=== PATIENT | female | born 1955 | race Caucasian/White ===

== ENCOUNTER → 2017-12-12 00:19 | Outpatient (CLI) | payer MEDICAID, SELFPAY ==
--- NOTE | 2017-12-12 12:34 | DI.REPORT_ITS ---
SYMPTOMS/DIAGNOSIS: F/U LT OVARIAN CYST ON CT, N83.202 PELVIC ULTRASOUND: Comparison is made with CT of the left femur dated [id number] which showed a solid appearing mass to the left side of the uterus measuring 5.5 x 5 cm. The images from a pelvic ultrasound from 2005 are no longer available for comparison. The report questioned residual ovarian tissue vs a left pelvic mass. The uterus is diminutive in size, measuring 5.6 x 2.1 x 2.6 cm. Multiple Nabothian cysts are noted in the cervix. The endometrial stripe measures 1 mm in thickness. There is a left sided mass measuring 5.7 x 4.8 x 4.7 cm which is difficult to separate from the uterus. The findings could represent a pedunculated fibroid. The attenuation on CT is similar to the adjacent uterus. The right ovary was unable to be seen on today's exam. The kidneys are unremarkable. There is no free fluid. IMPRESSION: 5.7 cm avascular solid appearing lesion to the left side of the uterus could represent a pedunculated fibroid. A pelvic MRI could be considered for further evaluation.
== END ==
PROVIDERS: PCP Physician Assistant Medical; Visit Provider Obstetrics & Gynecology
DX: N83.292 Other ovarian cyst, left side (principal); N88.8 Other specified noninflammatory disorders of cervix uteri; D25.9 Leiomyoma of uterus, unspecified
CPT/HCPCS: 76830; 76856

== ENCOUNTER → 2018-01-08 14:08 | Outpatient (CLI) | payer MEDICAID, SELFPAY ==
[2018-01-08 15:49] LABS: HCT 37.7 % (36.0-46.0); Mean Corp. HGB Concentration 34.5 g/dL (32.0-36.0); Mean Corpuscular Hemoglobin 28.6 pg (27.0-33.0); Mean Corpuscular Volume 82.9 fL (80-95); Mean Platelet Volume 9.7 fL (8.0-11.0); Platelet Count 224 x1000/uL (130-400); RBC 4.55 m/cumm (4.00-5.20); RBC Distribution Width 12.9 % (11.7-14.6); White Blood Cell Count 5.93 k/cumm (4.4-10.8)
[2018-01-08 16:02] LABS: Hemoglobin A1C 6.6 % (4.5-6.2)
[2018-01-08 16:08] LABS: Anion Gap 10.5 mmol/L (3-11); BUN 21 mg/dL (7-18); CO2 24.5 mmol/L (21.0-32.0); CREATININE 1.09 mg/dL (0.55-1.02); Calcium 9.2 mg/dL (8.5-10.1); Chloride 104 mmol/L (98-107); Estimated GFR 50.54 (mL/min/1.73m2); Glucose 104 mg/dL (70-100); Sodium 139 mmol/L (136-145)
== END ==
PROVIDERS: PCP Physician Assistant Medical; Visit Provider Student in an Organized Health Care Education/Training Program
DX: M16.11 Unilateral primary osteoarthritis, right hip (principal)
CPT/HCPCS: 36415; 80048; 85027; 86850; 86900; 86901; 83036

== ENCOUNTER 2018-01-16 13:48 | Inpatient (IN) | payer MEDICAID, SELFPAY ==
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
[2018-01-16] VITALS (18 sets, daily range): BP systolic 78–130; BP diastolic 39–78; PULSE 72–102; RESP 16–28; TEMP 36.5–37.1; O2SAT 87–98
[2018-01-16] MEDS: Lactated Ringers 1,000 ML 80 ML IV ×3 (07:56→14:37)
[2018-01-16] MEDS: Celecoxib 200 MG CAP 400 MG PO (08:01)
[2018-01-16] MEDS: Acetaminophen 500 MG TAB 1000 MG PO ×3 (08:01→20:03)
[2018-01-16] MEDS: oxyCODONE-CR 10 MG TABCR PO (08:02)
--- NOTE | 2018-01-16 09:43 | DI.RAD_ITS ---
SYMPTOMS/DIAGNOSIS: END-STAGE OSTEOARTHRITIS OF RIGHT HIP, RIGHT HIP DJD C-ARM FLUOROSCOPY OF THE RIGHT HIP: Fluoroscopy Time: 35.9 sec Fluoroscopy was provided in the OR for Dr. Sanders. Hard copy images show placement of a right total hip prosthesis. The alignment appears satisfactory.
[2018-01-16] MEDS: Bupivacaine 0.25% Pres-Free 30 ML VIAL 60 ML (12:34)
[2018-01-16] MEDS: Ketorolac 30 MG/ML VIAL (12:34)
--- NOTE | 2018-01-16 13:26 | DI.RAD_ITS ---
SYMPTOMS/DIAGNOSIS: POST OP CHECK RT HIP PORTABLE PELVIS: Comparison is made with intraoperative images performed earlier the same day. A single AP view was performed. The exam is quite limited due to underpenetration. A right hip prosthesis is seen which appears well positioned.
[2018-01-16] MEDS: Normal Saline Flush 10 ML SYR IV (14:36)
--- NOTE | 2018-01-16 14:44 | NUR.NOTE ---
Nursing Note: Pt arrived from PACU via stretcher. Transferred to bed via hover mat. A&Ox3, VSS (see worklist). CMT WNL, Pt reports slight tingling sensation. Pedal pulses palpated. denies nausea, reports slight pain in right hip, tylenol given. Pt's mouth and lips are very dry. Tolerating g.jarad and H2O. Right hips drsg c/d/i. Pt oriented to room and call churchill. visitor @ bedside.
--- NOTE | 2018-01-16 15:15 | IN_ITS ---
THIS REPORT WAS CANCELLED BY MISTAKE AND ON 05/30/18 CUT AND PASTED BACK INTO THE CORRECT PATIENT'S RECORD. THIS PROVIDER IS NO LONGER HERE AND THEREFORE THIS IS NOT SIGNED. DEB 05/30/18 Date: 01/16/18 Referring Doctor: Jose Sanders PT Orders: PT CONSULT: s/p R anterior MADELAINE Precautions: WBAT R LE Patient Profile/Admitting Diagnosis: Pt is a 62yr old female s/p right anterior total hip arthroplasty 01/16/[address] Sanders PMHX: obesity, diabetes mellitus, hypertension, depression, gastroesopahgeal reflux disease, oophorectomy, hyperperlipidemia Social History/Home Situation: Lives alone in a house, 4 steps with railing to enter, flight of stairs to basement laundry but does not have to do them initially. Baseline mobility independent with 4WW, independent ADLS. Equipment Owned/DME: cane, FWW, 4WW, raised toilet seat, shower bench and grab bars in the bathroom Subjective: Pt lying in bed, agreeable to PT consult. States she feels a pinching in her right hip and feels tired from today. Objective: General Observation: IV R UE, kennedy catheter, ice pack to right hip Mental Status: A&Ox3 Pain: no c/o pain Bed Mobility/Transfers: Supine-sit: HOB 30 degrees, independent Sit-stand: SBA with FWW Stand-sit: supervision Sit-supine: HOB flat, independent Gait: SBA with FWW 10ftx2 WBAT R LE. Slow step to gait pattern, slightly lightheaded with standing, reports being tired. Therex: Pt has issued home exercise program. Initiated ankle pumps, quad sets, glute sets x 20 reps Balance: Static Sitting: normal Dynamic Sitting: normal Static Standing:fair Dynamic Standing: fair Special Tests: Mobility Limitations Standardized Measure [facility] AM-PAC 6 clicks Basic Mobility Inpatient Short Form: Raw Score: 18 Standardized Score: 43.63 CMS Score: 46.58% CMS Modifier: CK Informed Consent/Education: Patient instructed in purpose of PT consult and plan of care. Assessment: Pt is a 62yr old female s/p right anterior total hip arthroplasty 01/16/[address] Sanders in setting of obesity, diabetes mellitus, hypertension. Patient presents with the following impairment level findings: pain right hip, edema right hip, decreased strength R hip, decreased strength and mobility with standing transfers and gait mobility requiring FWW for stability post operatively, decreased static and dynamic standing balance. Pt was able to mobilize out of bed this afternoon, will progress gait distance and stair training in am. Anticipate return to home setting when goals met. Impairments are contributing to the following functional limitations: AMPAC score CMS Score: 46.58% Patient is assessed as a *Moderate 35318 complexity based on the following: History: s/p right anterior total hip arthroplasty 01/16/[address] Sanders in setting of obesity, diabetes mellitus, hypertension. Examination: pain right hip, edema right hip, decreased strength R hip, decreased strength and mobility with standing transfers and gait mobility requiring FWW for stability post operatively, decreased static and dynamic standing balance. Presentation: evolving Decision Making: AMPAC score CMS Score: 46.58% Goals: Goals X1 week 1. Supine-Sit independent 2. Sit-Supine independent 3. Sit-Stand supervision with FWW 4. Stand-Sit supervision with FWW 5. Bed-Chair SBA with FWW 6. Chair-Bed SBA with FWW 7. Gait SBA with FWW 75ft WBAT R LE 8. Stairs up/down 4 steps with railing, SBA WBAT RL E 9. Independent with ome exercise program for R MADELAINE Plan of Care/Treatment Plan: 1-2x/day, 7 days/week x 1 week. Plan of care has been reviewed with the FRANKFURTER INSPECTOR providing the service under Physical Therapy direction. Initiate Physical Therapy intervention for strengthening, bed mobility, transfers, gait, stairs, balance training, use of assistive device. DISCHARGE RECOMMENDATIONS: Home, pt has all DME TREATMENT CODE/TIME: 25mi IE 1510 G Codes in the area mobility of walking and moving around: current status [id number] -CK; projected status GP [id number]. Discharge status (if discharging) GP G8980 CK based on AMPAC score CMS Score: 46.58% Chapin Mike PT Intake Vital Signs 01/08/18 14:31 01/16/18 07:35 01/16/18 13:07 01/16/18 13:12 01/16/18 13:17 01/16/18 13:30 01/16/18 13:45 01/16/18 14:01 01/16/18 14:20 01/16/18 14:48 Height 5 ft 5 in 5 ft 5 in Weight 103 kg BP 126/77 83/39 L 78/39 L 93/41 L 90/39 L 100/43 L 102/48 L 107/56 L 130/78 Respiration 18 19 16 16 17 16 19 17 18 Pulse 97 H 77 76 74 74 72 79 86 74 Temp 37.1 C 36.5 C 36.5 C 36.5 C 36.5 C 36.6 C 36.6 C 36.6 C 36.5 C Temp Source Tympanic Pulse Oximetry (%) 95 95 93 L 94 L 94 L 92 L 97 97 95 Oxygen Flow Rate 0 2 2 2 2 2 2 2 0 CC: Dictated by: CHAPIN MIKE PT Dictated: 01/16/18 Time: 1514 Date: Time: Transcribed Date: 01/16/18 Transcribed Time: 1514 By: [place] This is privileged, confidential information, intended only for the provider named. Any use or distribution by any person other than this provider is strictly prohibited. If you receive this report in error, please notify us immediately at [phone] and return the original report to us at the address above. Thank you.
--- NOTE | 2018-01-16 15:18 | IN_ITS ---
PT Notes Inpatient Physical Therapy Evaluation Date: 01/16/18 Referring Doctor: Jose Sanders PT Orders: PT CONSULT: s/p R anterior MADELAINE Precautions: WBAT R LE Patient Profile/Admitting Diagnosis: Pt is a 62yr old female s/p right anterior total hip arthroplasty 01/16/[address] Sanders PMHX: obesity, diabetes mellitus, hypertension, depression, gastroesopahgeal reflux disease, oophorectomy, hyperperlipidemia Social History/Home Situation: Lives alone in a house, 4 steps with railing to enter, flight of stairs to basement laundry but does not have to do them initially. Baseline mobility independent with 4WW, independent ADLS. Equipment Owned/DME: cane, FWW, 4WW, raised toilet seat, shower bench and grab bars in the bathroom Subjective: Pt lying in bed, agreeable to PT consult. States she feels a pinching in her right hip and feels tired from today. Objective: General Observation: IV R UE, kennedy catheter, ice pack to right hip Mental Status: A&Ox3 Pain: no c/o pain Bed Mobility/Transfers: Supine-sit: HOB 30 degrees, independent Sit-stand: SBA with FWW Stand-sit: supervision Sit-supine: HOB flat, independent Gait: SBA with FWW 10ftx2 WBAT R LE. Slow step to gait pattern, slightly lightheaded with standing, reports being tired. Therex: Pt has issued home exercise program. Initiated ankle pumps, quad sets, glute sets x 20 reps Balance: Static Sitting: normal Dynamic Sitting: normal Static Standing:fair Dynamic Standing: fair Special Tests: Mobility Limitations Standardized Measure [facility] AM-PAC 6 clicks Basic Mobility Inpatient Short Form: Raw Score: 18 Standardized Score: 43.63 CMS Score: 46.58% CMS Modifier: CK Informed Consent/Education: Patient instructed in purpose of PT consult and plan of care. Assessment: Pt is a 62yr old female s/p right anterior total hip arthroplasty 01/16/[address] Sanders in setting of obesity, diabetes mellitus, hypertension. Patient presents with the following impairment level findings: pain right hip, edema right hip, decreased strength R hip, decreased strength and mobility with standing transfers and gait mobility requiring FWW for stability post operatively, decreased static and dynamic standing balance. Pt was able to mobilize out of bed this afternoon, will progress gait distance and stair training in am. Anticipate return to home setting when goals met. Impairments are contributing to the following functional limitations: AMPAC score CMS Score: 46.58% Patient is assessed as a *Moderate 40649 complexity based on the following: History: s/p right anterior total hip arthroplasty 01/16/[address] Sanders in setting of obesity, diabetes mellitus, hypertension. Examination: pain right hip, edema right hip, decreased strength R hip, decreased strength and mobility with standing transfers and gait mobility requiring FWW for stability post operatively, decreased static and dynamic standing balance. Presentation: evolving Decision Making: AMPAC score CMS Score: 46.58% Goals: Goals X1 week 1. Supine-Sit independent 2. Sit-Supine independent 3. Sit-Stand supervision with FWW 4. Stand-Sit supervision with FWW 5. Bed-Chair SBA with FWW 6. Chair-Bed SBA with FWW 7. Gait SBA with FWW 75ft WBAT R LE 8. Stairs up/down 4 steps with railing, SBA WBAT RL E 9. Independent with ome exercise program for R MADELAINE Plan of Care/Treatment Plan: 1-2x/day, 7 days/week x 1 week. Plan of care has been reviewed with the RESIDENTIAL CONCIERGE providing the service under Physical Therapy direction. Initiate Physical Therapy intervention for strengthening, bed mobility, transfers, gait, stairs, balance training, use of assistive device. DISCHARGE RECOMMENDATIONS: Home, pt has all DME TREATMENT CODE/TIME: 25mi IE 1510 G Codes in the area mobility of walking and moving around: current status [id number] -CK; projected status GP [id number]. Discharge status (if discharging) GP G8980 CK based on AMPAC score CMS Score: 46.58% Karlene Myers PT Intake Vital Signs 3 l l l l 01/08/18 14:31 l l 01/16/18 07:35 l l 01/16/18 13:07 l l 01/16/18 13:12 l l 01/16/18 13:17 l l 01/16/18 13:30 l l 01/16/18 13:45 l l 01/16/18 14:01 l l 01/16/18 14:20 l l 01/16/18 14:48 l l Height 5 ft 5 in 5 ft 5 in l l Weight 103 kg l l BP 126/77 83/39 L 78/39 L 93/41 L 90/39 L 100/43 L 102/48 L 107/56 L 130/78 l l Respiration 18 19 16 16 17 16 19 17 18 l l Pulse 97 H 77 76 74 74 72 79 86 74 l l Temp 37.1 C 36.5 C 36.5 C 36.5 C 36.5 C 36.6 C 36.6 C 36.6 C 36.5 C l l Temp Source Tympanic l l Pulse Oximetry (%) 95 95 93 L 94 L 94 L 92 L 97 97 95 l l Oxygen Flow Rate 0 2 2 2 2 2 2 2 0
[2018-01-16] MEDS: Insulin Aspart 300 UNITS/3 ML PEN SC (17:00)
[2018-01-16] MEDS: metFORMIN 500 MG TAB PO (17:01)
[2018-01-16] MEDS: oxyCODONE 5 MG TAB PO ×2 (17:02→21:22)
--- NOTE | 2018-01-16 19:32 | W.PM.OP ---
Date of service: 01/16/18 Time of Service: 13:32 Operative Note Date of procedure: 01/16/18 Pre-op diagnosis: Right Hip Osteoarthritis Post-op diagnosis: same Procedure: Right Anterior Total Hip Arthroplasty Surgeon: Jose Sanders Nurses Educator: Uday King Anesthesia: spinal Estimated blood loss (mL): 400 Pathology: none sent Complications: None Patient was transported to: PACU Patient's condition: stable Implants: 1. Depuy Ethel Acetabular Component, [48]mm 2. Depuy Acetabular Liner, [48x32]mm[, +4 lateralized] 3. Depuy Actis [Standard Collared] Femoral Stem, Size 3 4. Depuy [Altrx Ceramic Femoral Head], Size [32+5]mm Indications: I have seen Tracy in clinic for symptoms of hip arthritis, confirmed with radiographic findings. Dee has exhausted nonoperative methods and was having significant limitations in daily function and desired better function and less pain. I discussed the technical details of a hip replacement. I explained the risks of the procedure to include, but not limited to, bleeding, infection, pain, stiffness, fracture, damage to nerves and vessels, damage to muscles and tendons, loosening, instability, leg length inequality, need for repeat procedure, blood clot and cardiopulmonary demise. Despite these risks, she elected to proceed. Findings: There was significant signs of arthritis throughout the hip. There were femoral neck osteophytes and significant chondromalacia over the superior femoral head. Procedure Description: Tracy was greeted in the preoperative holding area where the correct side was identified and marked. The consent was reviewed with the patient and signed. The history and physical was updated. All questions were answered. She was taken back to the operating room. A spinal anesthestic was then administered. The patient was placed into the supine position on the operating room table. The patient was then positioned onto the ARCH table. Both feet were wrapped with [place] cotton wrap along with Coban. The feet were placed in specialized boots for the ARCH table, well seated within the boot and secured. SCDs were applied. The patient was then slid down onto a peroneal post and the nonoperative leg was secured in a leg allison attached to the table. The operative side was placed into the ARCH table attachment and bed height and positioning was secured. A preoperative AP pelvis was obtained to serve as a reference for determining leg lengths. Prophylactic antibiotics in the form of Cefazolin were administered. 1g of Tranxemic Acid was given intravenously within 30 minutes of incision. The right leg was then prepped with Chloraprep and draped in a standard fashion with a large shower-curtain type drape with Iodine impregnated skin protection. A timeout to confirm correct identity, side and site, procedure, allergies, anesthesia, and medical concerns was performed. An obliquely oriented incision was made starting lateral to the ASIS and running distal over the Tensor Fascia Mercedes (TFL) muscle belly toward the fibular head, approximately 10cm. The skin and soft tissue was dissected sharply, through Tierra?s fascia, and to the fascia of the TFL. With the fascia and superior border of the IT band identified, the fascia was incised with a new knife just above any perforators from the IT band. The TFL muscle belly was bluntly dissected away from the fascia and moved laterally. The fat between TFL and rectus was identified to ensure the dissection was not within the TFL. Blunt dissection created space between abductors and the capsule and retractor was placed over the lateral femoral neck. The fibers of the rectus femoris tendon were identified and these were freed from the anterior capsule. A second cobra retractor was placed around the medial femoral neck. The TFL was further retracted laterally to show the deep fascia. Careful dissection through this layer identified three main crossing vessels of the lateral femoral circumflex. These were cauterized in multiple locations and then cut without any noticeable bleeding. The TFL was further released bluntly from the deep fascia to expose anterior hip capsule and fat The Chaz orthopaedic retractor was then placed beneath the TFL and against sartorius and medial soft tissues to protect and retract the soft tissues. A T-capsulotomy was then performed starting at the superior lateral acetabulum and moving distally to the intertrochanteric ridge. These capsular flaps were tagged with a No. 1 Ethibond and elevated from within. The capsular flaps were released to the shoulder of the lateral neck and to the lesser trochanter to give excellent visualization of the proximal femur. A neck osteotomy was performed using an oscillating saw based on preoperative templates. This cut started in the shoulder and of the lateral neck and exited medially. The saw was at all times directed medially to avoid injury to the greater trochanter. 6cm of traction was applied to the leg and the osteotomy opened. The femoral head was removed with a corkscrew, making sure to protect the TFL on its exit. This was measured on the back table to determing the starting reamer size. Portions of the rectus obscuring visualization were minimally elevated off the superior acetabulum. An anterior retractor was placed over the anterior wall between capsule and labrum. A posterior retractor was placed similarly. This provided excellent visualization. The contents of the cotyloid fossa were removed with electrocautery and the labrum was removed with a knife. There was a notable floor osteophyte. There was significant chondromalacia of the superior acetabulum. Acetabular reaming began with a 43 mm reamer. This first reaming was directed anterior to posterior and medial to get down to the true floor. This was inspected and reamed until the true floor was reached. I then reamed sequentially up to a 47 mm reamer where good fit was obtained. The larger reamers were oriented based on anatomical reference of the anterior and lateral hidalgo to ensure proper abduction and anteversion. Positioning and size was confirmed with the fluoroscopy. A 48 mm Depuy Ethel acetabular component was selected. The acetabulum was reamed around the periphery with the selected acetabular size to prevent a rim fit. The deep tissues were irrigated. The acetabular component was then impacted in a position of about 40-45 degrees of abduction and 15-20 degrees of anteversion, using the patient?s anatomy as the ultimate landmark. Fluoroscopy was used to confirm this. There was excellent toxicology teacher of the acetabular component and the inserting handle was removed. The acetabular liner, Depuy [id number] lateralized polyethylene liner, was inserted and lined up with the tines of the acetabular component. There was no soft tissue interposition. The liner was then impacted into position and confirmed to be well-seated. A portion of the susanna-articular cocktail was then injected around the acetabulum into the capsule and periosteum. This cocktail consisted of 50cc of 0.25% Bupivicaine and 20cc of Exparel, expanded to a total of 120cc. Traction was released from the femur. The leg was rotated to 120 degrees. Any remaining medial capsule was released until the lesser trochanter was easily palpable. A Martin retractor was placed medially. The lateral capsule was further released into the shoulder to allow access to the greater trochanter. A Martin retractor was placed over the greater trochanter which allowed the trochanter to flip in front of the capsule for excellent exposure. The leg was brought down into maximal extension and 20 degrees of adduction while ensuring there was no impingement on the acetabulum. Any remnant capsule within the trochanter was released. Piriformis and obturator externis were identified and protected. There was excellent access to the proximal femur. The lateral neck remnant was removed with a rongeur. A blunt canal probe was used to identify the canal and trajectory for later broaching. A box osteotome initiated the broach course. Broaching then began with a size 0 Actis broach. This was inserted manually around the trochanter and into the canal before mallet blows. The broach was seated to a few millimeters below the cut level based on the neck cut and the preoperative template. Sequential broaching was continued until a tight fit was obtained with good rotational control of the femur. A trial standard neck was inserted along with a +5 trial head. The leg was brought out of extension and adduction and then reduced with traction and internal rotation. The leg was stable anteriorly in a position of 30 degrees of extension and 90 degrees of external rotation. Fluoroscopy was used to ensure there was no fracture and the stem was seated well. Leg lengths were checked with an AP pelvis and pelvic reference points. Once content with the desired offset and leg lengths, the leg was brought back into extension, external rotation and adduction. The periosteum and surrounding tissue was injected with remaining portion of the susanna-articular cocktail. The proximal femur was irrigated as well as the deep tissues. The Depuy Actis standard collared stem, size 3, was then manually inserted into the proximal femur making sure to control rotation. It was then malleted into position with light blows, giving breaks to allow bone expansion and decrease risk of fracture. The selected Depuy Altrx Ceramic Head, size 32+5 mm, was then placed onto the clean and dry trunnion and secured with impaction onto the tapered fit. The leg was brought back out of extension and adduction and reduced with traction and internal rotation. Stability was confirmed with no shuck at 90 degrees of external rotation and 30 degrees of extension. No impingement through range of motion arc. Final x-ray images were obtained with fluoroscopy to confirm adequate positioning and no intraoperative fracture. The deep tissues were thoroughly irrigated with a pulse lavage. The second dose of TXA 1g was administered intravenously. The capsule was then reapproximated with the previously placed Ethibond sutures. The TFL fascia was finally closed with a No. 2 Stratafix, barbed suture. Deep tissues were then reapproximated with 0 Vicryl and a running 2-0 Vicryl. The skin was closed with a running 4-0 Monocryl in a subcuticular fashion. This was reinforced with skin glue. A Mepilex silver dressing was applied. At the end of the case, all counts were correct. Tracy was transferred to the hospital bed without difficulty and suffering no apparent complication. Tracy has a good prognosis. Physical therapy will start today and without restrictions, weight-bearing as tolerated. Aspirin 81mg BID will be used for DVT prophylaxis.
[2018-01-16] MEDS: Celecoxib 100 MG CAP 200 MG PO (20:04)
[2018-01-16] MEDS: Omeprazole 20 MG CAPCR PO (21:23)
[2018-01-16] MEDS: Glucosamine 500 MG CAP 2000 MG PO (21:24)
[2018-01-16] MEDS: Calcium 600mg/Vit D 200U TAB 1 TAB PO (21:25)
[2018-01-16] MEDS: Simvastatin 40 MG TAB PO (21:25)
[2018-01-17 00:30] VITALS: O2SAT 95
[2018-01-17] MEDS: oxyCODONE 5 MG TAB PO ×2 (00:31→08:59)
[2018-01-17] MEDS: Lactated Ringers 1,000 ML 80 ML IV (03:02)
[2018-01-17 04:18] VITALS: BP 127/74; PULSE 81; RESP 20; TEMP 36.5; O2SAT 98
[2018-01-17 07:27] LABS: HCT 32.4 % (36.0-46.0); Mean Corpuscular Hemoglobin 28.6 pg (27.0-33.0); Mean Corpuscular Volume 84.4 fL (80-95); Mean Platelet Volume 9.9 fL (8.0-11.0); Platelet Count 207 x1000/uL (130-400); RBC 3.84 m/cumm (4.00-5.20); RBC Distribution Width 12.7 % (11.7-14.6); White Blood Cell Count 9.21 k/cumm (4.4-10.8)
[2018-01-17 07:40] VITALS: O2SAT 99
[2018-01-17 07:43] LABS: Anion Gap 8.1 mmol/L (3-11); BUN 25 mg/dL (7-18); CO2 25.9 mmol/L (21.0-32.0); CREATININE 1.09 mg/dL (0.55-1.02); Calcium 8.9 mg/dL (8.5-10.1); Chloride 101 mmol/L (98-107); Estimated GFR 50.54 (mL/min/1.73m2); Glucose 122 mg/dL (70-100); Potassium 3.7 mmol/L (3.5-5.1); Sodium 135 mmol/L (136-145)
--- NOTE | 2018-01-17 07:53 | PT.INDS ---
PT Notes Inpatient Physical Therapy Discharge Summary Date: 01/17/18 Dates of Service: 01/16/18-01/17/18 SUBJECTIVE: Pt sitting in recliner chair, states she did not sleep well last night, states her right quad is sore, using ice packs. States her hip does not hurt her, only musculature around the hip. OBJECTIVE: General observation: IV R UE, kennedy catheter, ice pack right hip Pain: c/o pain right quad and groin, using ice packs Bed Mobility/Transfers: Sit-stand: independent with FWW Stand-sit: independent Gait: independent with FWW [id number] WBAT R LE. Step through gait pattern with steady stephanie Stairs: Instructed in up/down 5 steps with left railing, WBAT R LE. step to step sequence, pt performed independently Therex: Pt has issued home exercise program. Performed ankle pumps, long arc quads x 20 reps Balance: Static Sitting: normal Dynamic Sitting: normal Static Standing:fair Dynamic Standing: fair Assessment: Pt is a 62yr old female s/p right anterior total hip arthroplasty 01/16/[address] Sanders in setting of obesity, diabetes mellitus, hypertension. Patient was seen for 2 PT visits. Progressed from SBA standing transfers to independent, from SBA gait with FWW 10ftx2 to independent gait with FWW 150ft, able to ascend/descend 5 steps with railing, indepedendtly. Pt has met therapy goals and is ready for discharge to home setting. Goals: Goals X1 week 1. Supine-Sit independent 2. Sit-Supine independent 3. Sit-Stand supervision with FWW 4. Stand-Sit supervision with FWW 5. Bed-Chair SBA with FWW 6. Chair-Bed SBA with FWW 7. Gait SBA with FWW 75ft WBAT R LE 8. Stairs up/down 4 steps with railing, SBA WBAT RL E 9. Independent with home exercise program for R MADELAINE Pt met goals # 1, 2, 3, 4, 5, 6, 7, 8, 9 DISCHARGE RECOMMENDATIONS: Home, pt has all DME TREATMENT CODE/TIME: 25mi TAx1 TPx1 7:50 G Codes in the area mobility of walking and moving around: projected status GP [id number]. Discharge status (if discharging) GP [id number] CK Karlene Myers PT
[2018-01-17 07:55] VITALS: BP 105/68; PULSE 89; RESP 18; TEMP 36.8; O2SAT 94
--- NOTE | 2018-01-17 07:56 | INDS_ITS ---
PT Notes Inpatient Physical Therapy Discharge Summary Date: 01/17/18 Dates of Service: 01/16/18-01/17/18 SUBJECTIVE: Pt sitting in recliner chair, states she did not sleep well last night, states her right quad is sore, using ice packs. States her hip does not hurt her, only musculature around the hip. OBJECTIVE: General observation: IV R UE, kennedy catheter, ice pack right hip Pain: c/o pain right quad and groin, using ice packs Bed Mobility/Transfers: Sit-stand: independent with FWW Stand-sit: independent Gait: independent with FWW [id number] WBAT R LE. Step through gait pattern with steady stephanie Stairs: Instructed in up/down 5 steps with left railing, WBAT R LE. step to step sequence, pt performed independently Therex: Pt has issued home exercise program. Performed ankle pumps, long arc quads x 20 reps Balance: Static Sitting: normal Dynamic Sitting: normal Static Standing:fair Dynamic Standing: fair Assessment: Pt is a 62yr old female s/p right anterior total hip arthroplasty 01/16/[address] Sanders in setting of obesity, diabetes mellitus, hypertension. Patient was seen for 2 PT visits. Progressed from SBA standing transfers to independent, from SBA gait with FWW 10ftx2 to independent gait with FWW 150ft, able to ascend/descend 5 steps with railing, indepedendtly. Pt has met therapy goals and is ready for discharge to home setting. Goals: Goals X1 week 1. Supine-Sit independent 2. Sit-Supine independent 3. Sit-Stand supervision with FWW 4. Stand-Sit supervision with FWW 5. Bed-Chair SBA with FWW 6. Chair-Bed SBA with FWW 7. Gait SBA with FWW 75ft WBAT R LE 8. Stairs up/down 4 steps with railing, SBA WBAT RL E 9. Independent with home exercise program for R MADELAINE Pt met goals # 1, 2, 3, 4, 5, 6, 7, 8, 9 DISCHARGE RECOMMENDATIONS: Home, pt has all DME TREATMENT CODE/TIME: 25mi TAx1 TPx1 7:50 G Codes in the area mobility of walking and moving around: projected status GP [id number]. Discharge status (if discharging) GP [id number] CK Karlene Myers PT
[2018-01-17] MEDS: Celecoxib 100 MG CAP 200 MG PO (08:21)
[2018-01-17] MEDS: Acetaminophen 500 MG TAB 1000 MG PO (08:21)
[2018-01-17] MEDS: metFORMIN 500 MG TAB PO (08:22)
[2018-01-17] MEDS: Aspirin 81 MG CHEW PO (08:22)
[2018-01-17] MEDS: Ascorbic Acid 500 MG TAB PO (08:22)
[2018-01-17] MEDS: Hydrochlorothiazide 25 MG TAB PO (08:22)
[2018-01-17] MEDS: Multivitamin TAB 1 TAB PO (08:22)
--- NOTE | 2018-01-17 08:32 | W.PM.DS.N ---
DS: Diagnosis Discharge Diagnosis (1) Primary osteoarthritis of right hip: Status: Acute Discharge Plan Disposition Patient Disposition: HOME Condition: Good Discharge Details Reason For Visit: (R) HIP DJD Admit Date/Time: 01/16/18 14:10 Admit Provider: Jose Sanders Attending Provider: Jose Sanders Primary Care Provider: Alessia Steele [facility] Course Hospital Course: Patient was admitted to the medical/surgical floor following the procedure. It was tolerated well without any notable medical, surgical, or anesthetic complications. Mobilization began postoperatively. The kennedy catheter was removed and voiding spontaneously. Vitals were stable. Physical therapy worked with the patient and was cleared for discharge home. No acute medical issues. Home Meds and New Rx's Prescriptions: New polyethylene glycol 3350 17 gram Powder In Packet 17 g PO BID PRN PRN (Reason: Constipation) Qty: 0 RF: 0 acetaminophen [Mapap Extra Strength] 500 mg Tablet 1,000 mg PO TID Qty: 100 RF: 0 docusate sodium [Colace] 100 mg Capsule 100 mg PO BID PRN PRN (Reason: Constipation) Qty: 6 RF: 0 aspirin 81 mg Tablet,Chewable 81 mg PO BID Qty: 80 RF: 0 oxycodone 5 mg Tablet 5 mg PO Q4H PRN PRN (Reason: Pain) Qty: 18 RF: 0 celecoxib 200 mg capsule 200 mg PO BID Qty: 60 RF: 2 Continue hydrochlorothiazide 50 MG tablet 50 mg PO DAILY RF: 0 [place]'s wort 300 MG tablet 600 mg PO .QHS RF: 0 simvastatin 40 MG tablet 40 mg PO .QHS RF: 0 candesartan [Atacand] 32 MG tablet 32 mg PO DAILY RF: 0 omeprazole 20 MG capsule,delayed release(DR/EC) 20 mg PO HS RF: 0 doxazosin 2 MG tablet 4 mg PO .QHS RF: 0 fish oil-dha-epa 1 EACH capsule 1,200 mg PO BID RF: 0 Tn-E6-mmy-njqa-bpf-edpe-bor 1 EACH tablet 1 tab PO .QHS RF: 0 glucosamine sulfate 2KCl 500 MG capsule 2,000 mg PO .QHS RF: 0 amlodipine 5 MG tablet 5 mg PO .QHS RF: 0 metformin 1,000 MG tablet 1,000 mg PO BID RF: 0 ascorbate calcium 500 MG tablet 500 mg PO DAILY RF: 0 multivitamin 1 EACH capsule 1 ea PO DAILY RF: 0 [place]'s wort 300 MG capsule 300 mg PO BID RF: 0 turmeric root extract 500 MG capsule 500 mg PO HS RF: 0 Discontinued fluticasone-salmeterol [Advair Diskus] 1 EACH blister with device 1 ea Inhalation DAILY RF: 0 aspirin [Aspirin Low-Strength] 81 MG tablet,chewable 81 mg PO .QHS RF: 0 Discharge Instructions Instructions: Total Hip Discharge Instructions Additional Instructions: Dr. Sanders?s Total Hip Discharge Instructions Activity: The most important activity is to walk. You should try to take short walks a few times a day. You have no restrictions on movement or positioning, but do not try to force what you do. You will find some stiffness and weakness with hip flexion (lifting your knee). Do not try to strengthen this too early, continue to practice walking and stairs and this will come. - Outpatient physical therapy can be helpful to help return you to a normal gait and improve your flexibility and strength. This can start around 2 weeks. For some patients, it?s not necessary. Usually this is determined at the time of discharge or at the first post-operative visit. - You should wear the THU hose on both legs for 4 weeks. Dressing: Keep the surgical dressing in place as long as possible. Try to keep this on until your follow-up visit as long as the dressing is adhered to the skin. It may get wet after 3 days but avoid soaking the dressing. If it gets wet, just lightly pat dry. It is important to always keep some gauze between skin folds, especially when you are sitting. Spend some time with the wound exposed when you are lying flat as the incision does wrinkle onto itself. If the dressing becomes soaked or peels off, then you may replace it with gauze; keep dry. Medications: - You should take Tylenol and an anti-inflammatory Celebrex as your primary pain control medications - You have been prescribed a stronger pain medication Oxycodone for breakthrough pain, take as needed as prescribed. - You should continue your Omeprazole to help reduce stomach acid and reflux. - You will be taking Aspirin 81mg twice a day for DVT prevention unless instructed otherwise. - If you have constipation you should take Colace or Miralax (both [id number]). It takes most people 3-4 days to have a bowel movement. Follow-up: 2 weeks Stand Alone Forms: Nursing Discharge Form Referrals: Jose Sanders MD [ [facility] STAFF PHYSICIAN] - Activity:: Activity as Tolerated Equipment/Supplies:: Walker Diet:: Normal Diet Discharge Orders Discharge Orders: Discharge Order (Routine); Ordered 01/17/18 Ordered By: Jose Sanders DS: Data Completed studies during hospitalization [Text1]: Procedures Colonoscopy (08/31/13) Endoscopic polypectomy of large intestine (03/22/10) Esophagogastroduodenoscopy [EGD] with closed biopsy (03/22/10) [Endoscopic] polypectomy of rectum (03/22/10) Labs on day of discharge: Labs from last 24 hours 01/17/18 01/17/18 06:28 06:20 WBC 9.21 RBC 3.84 L Hgb 11.0 L Hct 32.4 L MCV 84.4 MCH 28.6 MCHC 34.0 RDW 12.7 Plt Count 207 MPV 9.9 Sodium 135 L Potassium 3.7 Chloride 101 Carbon Dioxide 25.9 Anion Gap 8.1 BUN 25 H Creatinine 1.09 H Estimated GFR/1.73 m2 50.54 Glucose 122 H Calcium 8.9 Date of service: 01/17/18 Time of Service: 08:33
--- NOTE | 2018-01-17 08:35 | DSE_ITS ---
DS: Diagnosis Discharge Diagnosis (1) Primary osteoarthritis of right hip: Status: Acute Discharge Plan Disposition Patient Disposition: HOME Condition: Good Discharge Details Reason For Visit: (R) HIP DJD Admit Date/Time: 01/16/18 14:10 Admit Provider: Jose Sanders Attending Provider: Jose Sanders Primary Care Provider: [facility] Course Hospital Course: Patient was admitted to the medical/surgical floor following the procedure. It was tolerated well without any notable medical, surgical, or anesthetic complications. Mobilization began postoperatively. The kennedy catheter was removed and voiding spontaneously. Vitals were stable. Physical therapy worked with the patient and was cleared for discharge home. No acute medical issues. Home Meds and New Rx's Prescriptions: New polyethylene glycol 3350 17 gram Powder In Packet 17 g PO BID PRN PRN (Reason: Constipation) Qty: 0 RF: 0 acetaminophen [Mapap Extra Strength] 500 mg Tablet 1,000 mg PO TID Qty: 100 RF: 0 docusate sodium [Colace] 100 mg Capsule 100 mg PO BID PRN PRN (Reason: Constipation) Qty: 6 RF: 0 aspirin 81 mg Tablet,Chewable 81 mg PO BID Qty: 80 RF: 0 oxycodone 5 mg Tablet 5 mg PO Q4H PRN PRN (Reason: Pain) Qty: 18 RF: 0 celecoxib 200 mg capsule 200 mg PO BID Qty: 60 RF: 2 Continue hydrochlorothiazide 50 MG tablet 50 mg PO DAILY RF: 0 [place]'s wort 300 MG tablet 600 mg PO .QHS RF: 0 simvastatin 40 MG tablet 40 mg PO .QHS RF: 0 candesartan [Atacand] 32 MG tablet 32 mg PO DAILY RF: 0 omeprazole 20 MG capsule,delayed release(DR/EC) 20 mg PO HS RF: 0 doxazosin 2 MG tablet 4 mg PO .QHS RF: 0 fish oil-dha-epa 1 EACH capsule 1,200 mg PO BID RF: 0 Gv-[id number]-uoo-qljm-irf-eiur-bor 1 EACH tablet 1 tab PO .QHS RF: 0 glucosamine sulfate 2KCl 500 MG capsule 2,000 mg PO .QHS RF: 0 amlodipine 5 MG tablet 5 mg PO .QHS RF: 0 metformin 1,000 MG tablet 1,000 mg PO BID RF: 0 ascorbate calcium 500 MG tablet 500 mg PO DAILY RF: 0 multivitamin 1 EACH capsule 1 ea PO DAILY RF: 0 [place]'s wort 300 MG capsule 300 mg PO BID RF: 0 turmeric root extract 500 MG capsule 500 mg PO HS RF: 0 Discontinued fluticasone-salmeterol [Advair Diskus] 1 EACH blister with device 1 ea Inhalation DAILY RF: 0 aspirin [Aspirin Low-Strength] 81 MG tablet,chewable 81 mg PO .QHS RF: 0 Discharge Instructions Instructions: Total Hip Discharge Instructions Additional Instructions: Dr. Sanders?s Total Hip Discharge Instructions Activity: The most important activity is to walk. You should try to take short walks a few times a day. You have no restrictions on movement or positioning, but do not try to force what you do. You will find some stiffness and weakness with hip flexion (lifting your knee). Do not try to strengthen this too early, continue to practice walking and stairs and this will come. - Outpatient physical therapy can be helpful to help return you to a normal gait and improve your flexibility and strength. This can start around 2 weeks. For some patients, it?s not necessary. Usually this is determined at the time of discharge or at the first post-operative visit. - You should wear the THU hose on both legs for 4 weeks. Dressing: Keep the surgical dressing in place as long as possible. Try to keep this on until your follow-up visit as long as the dressing is adhered to the skin. It may get wet after 3 days but avoid soaking the dressing. If it gets wet, just lightly pat dry. It is important to always keep some gauze between skin folds, especially when you are sitting. Spend some time with the wound exposed when you are lying flat as the incision does wrinkle onto itself. If the dressing becomes soaked or peels off, then you may replace it with gauze; keep dry. Medications: - You should take Tylenol and an anti-inflammatory Celebrex as your primary pain control medications - You have been prescribed a stronger pain medication Oxycodone for breakthrough pain, take as needed as prescribed. - You should continue your Omeprazole to help reduce stomach acid and reflux. - You will be taking Aspirin 81mg twice a day for DVT prevention unless instructed otherwise. - If you have constipation you should take Colace or Miralax (both over-the- counter). It takes most people 3-4 days to have a bowel movement. Follow-up: 2 weeks Stand Alone Forms: Nursing Discharge Form Referrals: Jose Sanders MD [ [facility] STAFF PHYSICIAN] - Activity:: Activity as Tolerated Equipment/Supplies:: Walker Diet:: Normal Diet Discharge Orders Discharge Orders: Discharge Order (Routine); Ordered 01/17/18 Ordered By: Jose Sanders DS: Data Completed studies during hospitalization [Text1]: Procedures Colonoscopy (08/31/13) Endoscopic polypectomy of large intestine (03/22/10) Esophagogastroduodenoscopy [EGD] with closed biopsy (03/22/10) [Endoscopic] polypectomy of rectum (03/22/10) Labs on day of discharge: Labs from last 24 hours 01/17/18 01/17/18 06:28 06:20 WBC 9.21 RBC 3.84 L Hgb 11.0 L Hct 32.4 L MCV 84.4 MCH 28.6 MCHC 34.0 RDW 12.7 Plt Count 207 MPV 9.9 Sodium 135 L Potassium 3.7 Chloride 101 Carbon Dioxide 25.9 Anion Gap 8.1 BUN 25 H Creatinine 1.09 H Estimated GFR/1.73 m2 50.54 Glucose 122 H Calcium 8.9 Date of service: 01/17/18 Time of Service: 08:33
--- NOTE | 2018-01-17 09:04 | W.PM.DS.N ---
DS: Diagnosis Discharge Diagnosis (1) Primary osteoarthritis of right hip: Status: Acute Discharge Plan Disposition Patient Disposition: HOME Condition: Good Discharge Details Reason For Visit: (R) HIP DJD Admit Date/Time: 01/16/18 14:10 Admit Provider: Jose Sanders Attending Provider: Jose Sanders Primary Care Provider: [facility] Hospital Course: Patient was admitted to the medical/surgical floor following the procedure. It was tolerated well without any notable medical, surgical, or anesthetic complications. Mobilization began postoperatively. The kenneyd catheter was removed and voiding spontaneously. Vitals were stable. Physical therapy worked with the patient and was cleared for discharge home. No acute medical issues. Home Meds and New Rx's Prescriptions: New polyethylene glycol 3350 17 gram Powder In Packet 17 g PO BID PRN PRN (Reason: Constipation) Qty: 0 RF: 0 acetaminophen [Mapap Extra Strength] 500 mg Tablet 1,000 mg PO TID Qty: 100 RF: 0 docusate sodium [Colace] 100 mg Capsule 100 mg PO BID PRN PRN (Reason: Constipation) Qty: 6 RF: 0 aspirin 81 mg Tablet,Chewable 81 mg PO BID Qty: 80 RF: 0 oxycodone 5 mg Tablet 5 mg PO Q4H PRN PRN (Reason: Pain) Qty: 18 RF: 0 celecoxib 200 mg capsule 200 mg PO BID Qty: 60 RF: 2 Continue hydrochlorothiazide 50 MG tablet 50 mg PO DAILY RF: 0 [place]'s wort 300 MG tablet 600 mg PO .QHS RF: 0 simvastatin 40 MG tablet 40 mg PO .QHS RF: 0 candesartan [Atacand] 32 MG tablet 32 mg PO DAILY RF: 0 omeprazole 20 MG capsule,delayed release(DR/EC) 20 mg PO HS RF: 0 doxazosin 2 MG tablet 4 mg PO .QHS RF: 0 fish oil-dha-epa 1 EACH capsule 1,200 mg PO BID RF: 0 Qb-Q5-mnf-ketm-kmw-dfeq-bor 1 EACH tablet 1 tab PO .QHS RF: 0 glucosamine sulfate 2KCl 500 MG capsule 2,000 mg PO .QHS RF: 0 amlodipine 5 MG tablet 5 mg PO .QHS RF: 0 metformin 1,000 MG tablet 1,000 mg PO BID RF: 0 ascorbate calcium 500 MG tablet 500 mg PO DAILY RF: 0 multivitamin 1 EACH capsule 1 ea PO DAILY RF: 0 [place]'s wort 300 MG capsule 300 mg PO BID RF: 0 turmeric root extract 500 MG capsule 500 mg PO HS RF: 0 Discontinued fluticasone-salmeterol [Advair Diskus] 1 EACH blister with device 1 ea Inhalation DAILY RF: 0 aspirin [Aspirin Low-Strength] 81 MG tablet,chewable 81 mg PO .QHS RF: 0 Discharge Instructions Instructions: Total Hip Discharge Instructions Additional Instructions: Dr. Sanders?s Total Hip Discharge Instructions Activity: The most important activity is to walk. You should try to take short walks a few times a day. You have no restrictions on movement or positioning, but do not try to force what you do. You will find some stiffness and weakness with hip flexion (lifting your knee). Do not try to strengthen this too early, continue to practice walking and stairs and this will come. - Outpatient physical therapy can be helpful to help return you to a normal gait and improve your flexibility and strength. This can start around 2 weeks. For some patients, it?s not necessary. Usually this is determined at the time of discharge or at the first post-operative visit. - You should wear the THU hose on both legs for 4 weeks. Dressing: Keep the surgical dressing in place as long as possible. Try to keep this on until your follow-up visit as long as the dressing is adhered to the skin. It may get wet after 3 days but avoid soaking the dressing. If it gets wet, just lightly pat dry. It is important to always keep some gauze between skin folds, especially when you are sitting. Spend some time with the wound exposed when you are lying flat as the incision does wrinkle onto itself. If the dressing becomes soaked or peels off, then you may replace it with gauze; keep dry. Medications: - You should take Tylenol and an anti-inflammatory Celebrex as your primary pain control medications - You have been prescribed a stronger pain medication Oxycodone for breakthrough pain, take as needed as prescribed. - You should continue your Omeprazole to help reduce stomach acid and reflux. - You will be taking Aspirin 81mg twice a day for DVT prevention unless instructed otherwise. - If you have constipation you should take Colace or Miralax (both [id number]). It takes most people 3-4 days to have a bowel movement. Follow-up: 2 weeks 1. Encounter Date and Reason I certify that TRACY TOLBERT was seen by Jose Sanders on 01/17/18 and that I had a [id number] encounter with this patient that meets the physician face to face encounter requirements. 2. Clinical Findings Supporting Skilled Need and Homebound Status I certify that home health services are medically necessary, include either intermittent longterm and/or physical/speech therapy, and that this patient is homebound in that absences from the home require considerable and taxing effort and are infrequent or of short duration, or are attributable to the need to receive medical care. [X] (a) Attached documentation from encounter provides clinical findings supporting skilled need and homebound status (including what assistance patient requires to leave the home). The encounter with the patient was in whole, or in part, for the following medical condition, which is the primary reason for home health care: (R) HIP DJD Alf: Tracy would benefit from home health nursing to address multiple medications and home safety. Physical Therapy: PT is necessary to address significant gait abnormalities, weakness, and stiffness. PT should focus on ambulation and gait training. Home safety and help with ADLs will be important for her recovery status/post RIGHT anterior hip replacement. There are no hip precautions. Speech Therapy: Homebound: Tracy is homebound due to significant weakness and gait abnormalities. She is unable to leave her home without assistance. 3. Certification and Authentication I certify that I composed the above information based on my clinical judgement relating to this patient's medical condition and, if applicable, clinical findings communicated to me by the NPP or inpatient physician who performed the Home Health Referral. All further orders will be obtained through (Community Based Physician - PCP) Stand Alone Forms: Nursing Discharge Form Referrals: Jose Sanders MD [ [facility] STAFF PHYSICIAN] - 01/31/18 8:15 am Activity:: Activity as Tolerated Equipment/Supplies:: Walker Diet:: Normal Diet Discharge Orders Discharge Orders: Discharge Order (Routine); Ordered 01/17/18 Ordered By: Jose Sanders DS: Data Completed studies during hospitalization [Text1]: Procedures Colonoscopy (04/21/14) Endoscopic polypectomy of large intestine (03/22/10) Esophagogastroduodenoscopy [EGD] with closed biopsy (03/22/10) [Endoscopic] polypectomy of rectum (03/22/10) Labs on day of discharge: Labs from last 24 hours 01/17/18 01/17/18 06:28 06:20 WBC 9.21 RBC 3.84 L Hgb 11.0 L Hct 32.4 L MCV 84.4 MCH 28.6 MCHC 34.0 RDW 12.7 Plt Count 207 MPV 9.9 Sodium 135 L Potassium 3.7 Chloride 101 Carbon Dioxide 25.9 Anion Gap 8.1 BUN 25 H Creatinine 1.09 H Estimated GFR/1.73 m2 50.54 Glucose 122 H Calcium 8.9
--- NOTE | 2018-01-17 09:43 | DSE_ITS ---
DS: Diagnosis Discharge Diagnosis (1) Primary osteoarthritis of right hip: Status: Acute Discharge Plan Disposition Patient Disposition: HOME Condition: Good Discharge Details Reason For Visit: (R) HIP DJD Admit Date/Time: 01/16/18 14:10 Admit Provider: Jose Sanders Attending Provider: Jose Sanders Primary Care Provider: [facility] Course Hospital Course: Patient was admitted to the medical/surgical floor following the procedure. It was tolerated well without any notable medical, surgical, or anesthetic complications. Mobilization began postoperatively. The kennedy catheter was removed and voiding spontaneously. Vitals were stable. Physical therapy worked with the patient and was cleared for discharge home. No acute medical issues. Home Meds and New Rx's Prescriptions: New polyethylene glycol 3350 17 gram Powder In Packet 17 g PO BID PRN PRN (Reason: Constipation) Qty: 0 RF: 0 acetaminophen [Mapap Extra Strength] 500 mg Tablet 1,000 mg PO TID Qty: 100 RF: 0 docusate sodium [Colace] 100 mg Capsule 100 mg PO BID PRN PRN (Reason: Constipation) Qty: 6 RF: 0 aspirin 81 mg Tablet,Chewable 81 mg PO BID Qty: 80 RF: 0 oxycodone 5 mg Tablet 5 mg PO Q4H PRN PRN (Reason: Pain) Qty: 18 RF: 0 celecoxib 200 mg capsule 200 mg PO BID Qty: 60 RF: 2 Continue hydrochlorothiazide 50 MG tablet 50 mg PO DAILY RF: 0 [place]'s wort 300 MG tablet 600 mg PO .QHS RF: 0 simvastatin 40 MG tablet 40 mg PO .QHS RF: 0 candesartan [Atacand] 32 MG tablet 32 mg PO DAILY RF: 0 omeprazole 20 MG capsule,delayed release(DR/EC) 20 mg PO HS RF: 0 doxazosin 2 MG tablet 4 mg PO .QHS RF: 0 fish oil-dha-epa 1 EACH capsule 1,200 mg PO BID RF: 0 Xy-M4-lsv-biip-lxm-vmsi-bor 1 EACH tablet 1 tab PO .QHS RF: 0 glucosamine sulfate 2KCl 500 MG capsule 2,000 mg PO .QHS RF: 0 amlodipine 5 MG tablet 5 mg PO .QHS RF: 0 metformin 1,000 MG tablet 1,000 mg PO BID RF: 0 ascorbate calcium 500 MG tablet 500 mg PO DAILY RF: 0 multivitamin 1 EACH capsule 1 ea PO DAILY RF: 0 [place]'s wort 300 MG capsule 300 mg PO BID RF: 0 turmeric root extract 500 MG capsule 500 mg PO HS RF: 0 Discontinued fluticasone-salmeterol [Advair Diskus] 1 EACH blister with device 1 ea Inhalation DAILY RF: 0 aspirin [Aspirin Low-Strength] 81 MG tablet,chewable 81 mg PO .QHS RF: 0 Discharge Instructions Instructions: Total Hip Discharge Instructions Additional Instructions: Dr. Sanders?s Total Hip Discharge Instructions Activity: The most important activity is to walk. You should try to take short walks a few times a day. You have no restrictions on movement or positioning, but do not try to force what you do. You will find some stiffness and weakness with hip flexion (lifting your knee). Do not try to strengthen this too early, continue to practice walking and stairs and this will come. - Outpatient physical therapy can be helpful to help return you to a normal gait and improve your flexibility and strength. This can start around 2 weeks. For some patients, it?s not necessary. Usually this is determined at the time of discharge or at the first post-operative visit. - You should wear the THU hose on both legs for 4 weeks. Dressing: Keep the surgical dressing in place as long as possible. Try to keep this on until your follow-up visit as long as the dressing is adhered to the skin. It may get wet after 3 days but avoid soaking the dressing. If it gets wet, just lightly pat dry. It is important to always keep some gauze between skin folds, especially when you are sitting. Spend some time with the wound exposed when you are lying flat as the incision does wrinkle onto itself. If the dressing becomes soaked or peels off, then you may replace it with gauze; keep dry. Medications: - You should take Tylenol and an anti-inflammatory Celebrex as your primary pain control medications - You have been prescribed a stronger pain medication Oxycodone for breakthrough pain, take as needed as prescribed. - You should continue your Omeprazole to help reduce stomach acid and reflux. - You will be taking Aspirin 81mg twice a day for DVT prevention unless instructed otherwise. - If you have constipation you should take Colace or Miralax (both over-the- counter). It takes most people 3-4 days to have a bowel movement. Follow-up: 2 weeks 1. Encounter Date and Reason I certify that TRACY TOLBERT was seen by Jose Sanders on 01/17/18 and that I had a [id number] encounter with this patient that meets the physician face to face encounter requirements. 2. Clinical Findings Supporting Skilled Need and Homebound Status I certify that home health services are medically necessary, include either intermittent mcc and/or physical/speech therapy, and that this patient is homebound in that absences from the home require considerable and taxing effort and are infrequent or of short duration, or are attributable to the need to receive medical care. [X] (a) Attached documentation from encounter provides clinical findings supporting skilled need and homebound status (including what assistance patient requires to leave the home). The encounter with the patient was in whole, or in part, for the following medical condition, which is the primary reason for home health care: (R) HIP DJD Snf: Tracy would benefit from home health nursing to address multiple medications and home safety. Physical Therapy: PT is necessary to address significant gait abnormalities, weakness, and stiffness. PT should focus on ambulation and gait training. Home safety and help with ADLs will be important for her recovery status/post RIGHT anterior hip replacement. There are no hip precautions. Speech Therapy: Homebound: Tarcy is homebound due to significant weakness and gait abnormalities. She is unable to leave her home without assistance. 3. Certification and Authentication I certify that I composed the above information based on my clinical judgement relating to this patient's medical condition and, if applicable, clinical findings communicated to me by the NPP or inpatient physician who performed the Home Health Referral. All further orders will be obtained through (Community Based Physician - PCP) Stand Alone Forms: Nursing Discharge Form Referrals: Jose Sanders MD [ [facility] STAFF PHYSICIAN] - 01/31/18 8:15 am Activity:: Activity as Tolerated Equipment/Supplies:: Walker Diet:: Normal Diet Discharge Orders Discharge Orders: Discharge Order (Routine); Ordered 01/17/18 Ordered By: Jose Sanders DS: Data Completed studies during hospitalization [Text1]: Procedures Colonoscopy (04/21/14) Endoscopic polypectomy of large intestine (03/22/10) Esophagogastroduodenoscopy [EGD] with closed biopsy (03/22/10) [Endoscopic] polypectomy of rectum (03/22/10) Labs on day of discharge: Labs from last 24 hours 01/17/18 01/17/18 06:28 06:20 WBC 9.21 RBC 3.84 L Hgb 11.0 L Hct 32.4 L MCV 84.4 MCH 28.6 MCHC 34.0 RDW 12.7 Plt Count 207 MPV 9.9 Sodium 135 L Potassium 3.7 Chloride 101 Carbon Dioxide 25.9 Anion Gap 8.1 BUN 25 H Creatinine 1.09 H Estimated GFR/1.73 m2 50.54 Glucose 122 H Calcium 8.9
--- NOTE | 2018-01-17 11:48 | PDOC.CMIN ---
- If Service Date Differs Date of service: 01/17/18 Time of Service: 11:48 Care Management Initial Assess REASON FOR HOSPITALIZATION:: Right hip DJD. PAST MEDICAL HISTORY/PAST SURGICAL HISTORY:: Osteoarthritis knee, hip, GERD, diabetes, hypertension, hyperlipidemia, depression. Surgical: oophorectomy. PREVIOUS FUNCTIONAL STATUS/SOCIAL/FAMILY SUPPORTS:: Tracy resides alone in her own home with two cats and a dog. She has a brother and sister who live locally and reports that she has good support from two friends living near by. She has two steps into her home and owns a FWW. 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 She is independent with her ADLs and transportation and has no concerns regarding returning home. CURRENT FUNCTIONAL STATUS:: Tracy is lying in bed when CM visits this morning. She is engaged in conversation, makes good eye contact and is talkative. Tracy reports that her pain is minimal and she feels ok regarding discharging home, possibly this afternoon. Tracy does not have any community or home services at this time and will be needing Home health nursing for medication management and PT services upon discharge. Tracy reports that she has a FWW and railings in her home. ADVANCE DIRECTIVES:: Not on file at [facility]. Pt provided with paperwork. Has patient been provided with information about the portal?: Yes Did the patient sign up for the portal?: No CODE STATUS:: Full Code INSURANCE COVERAGE / FINANCIAL ISSUES:: Medicaid. CURRENT HOME/COMMUNITY SERVICES/EQUIPMENT:: No current home or community services. PRIMARY CARE PHYSICIAN:: Alessia Steele. POTENTIAL DISCHARGE NEEDS:: Tracy will have home health nursing and PT services following discharge. She will need a follow up appointment with MD in two weeks. PATIENT/FAMILY EDUCATION NEEDS:: Discharge education, any limitations and follow up plan of care. Ask Me Three discussion. ANTICIPATED BARRIERS TO DISCHARGE:: No anticipated barriers to discharge. TRANSPORTATION:: Tracy will transport via private vehicle with family. PLAN:: Tracy will discharge when medically ready per MD. Anticipate pt will have new home health nursing and PT services and follow up with MD. CM will continue to provide support to patient and care team regarding discharge planning and disposition.
--- NOTE | 2018-01-17 12:01 | INITIAL_ITS ---
- If Service Date Differs Date of service: 01/17/18 Time of Service: 11:48 Care Management Initial Assess REASON FOR HOSPITALIZATION:: Right hip DJD. PAST MEDICAL HISTORY/PAST SURGICAL HISTORY:: Osteoarthritis knee, hip, GERD, diabetes, hypertension, hyperlipidemia, depression. Surgical: oophorectomy. PREVIOUS FUNCTIONAL STATUS/SOCIAL/FAMILY SUPPORTS:: Tracy resides alone in her own home with two cats and a dog. She has a brother and sister who live locally and reports that she has good support from two friends living near by. She has two steps into her home and owns a FWW. 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 She is independent with her ADLs and transportation and has no concerns regarding returning home. CURRENT FUNCTIONAL STATUS:: Tracy is lying in bed when CM visits this morning. She is engaged in conversation, makes good eye contact and is talkative. Tracy reports that her pain is minimal and she feels ok regarding discharging home, possibly this afternoon. Tracy does not have any community or home services at this time and will be needing Home health nursing for medication management and PT services upon discharge. Tracy reports that she has a FWW and railings in her home. ADVANCE DIRECTIVES:: Not on file at [facility]. Pt provided with paperwork. Has patient been provided with information about the portal?: Yes Did the patient sign up for the portal?: No CODE STATUS:: Full Code INSURANCE COVERAGE / FINANCIAL ISSUES:: Medicaid. CURRENT HOME/COMMUNITY SERVICES/EQUIPMENT:: No current home or community services. PRIMARY CARE PHYSICIAN:: Alessia Steele. POTENTIAL DISCHARGE NEEDS:: Tracy will have home health nursing and PT services following discharge. She will need a follow up appointment with MD in two weeks. PATIENT/FAMILY EDUCATION NEEDS:: Discharge education, any limitations and follow up plan of care. Ask Me Three discussion. ANTICIPATED BARRIERS TO DISCHARGE:: No anticipated barriers to discharge. TRANSPORTATION:: Tracy will transport via private vehicle with family. PLAN:: Tracy will discharge when medically ready per MD. Anticipate pt will have new home health nursing and PT services and follow up with MD. CM will continue to provide support to patient and care team regarding discharge planning and disposition.
--- NOTE | 2018-01-17 12:01 | PDOC.CMDIS ---
- If Service Date Differs Date of service: 01/17/18 Time of Service: 12:01 LACE Index Scoring Tool - Questions: Length of Stay (in days): 2 Acuity (Admit via E.D.?): No E.D. Visits: 0 - Answers: Total Score: 2 Risk of Readmission: Low Risk Care Management Discharge Reason for Hospitalization: Right hip DJD. Discharge Plan: Tracy will discharge home when medically ready per MD. Anticipate pt will discharge with new home health nursing and PT services and follow up with MD. Tracy will transport via private vehicle with MD. Patient/Family Education Needs: Review discharge instructions and any limitations. Ask Me Three discussion. Services Needed at Discharge: Home Health Care Services, Physical Therapy
--- NOTE | 2018-01-23 13:18 | PT.INIE ---
Date of service: 01/16/18 Time of Service: 15:15 PT Notes Inpatient Physical Therapy Evaluation Date: 01/21/18 Referring Doctor: Kevin Najera PT Orders: PT CONSULT: multiple fractures, mobilize bed to chair. 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 Home is not one level on either story. Baseline mobility is independent gait with no device, independent with ADLS. Equipment Owned/DME: none Subjective: Pt lying on gurney bed, states he is more sore today than he was yesterday. Agreeable to PT consult. States he doesn't know where he is going to go when he leaves, he can't manage in home setting because it is not one level and he is going to need to be wheelchair dependent x6-8weeks until he can begin weight bearing on his right uppper or lower extermity. Pt is very concerned about discharge planning, he is open to going to a rehab facility if needed until he can be more mobile. Objective: General Observation: IV L UE. sling R UE, right wrist splint, right ankle splint and dressing Mental Status: A& O x3 Pain: 5/10 pain all over, RN provided pain medication ROM: Right Upper Extremity: NT due to fractures Left Upper Extremity: AROM WNL Right Lower Extremity: AROM hip and knee WNL, ankle NT due to splint Left Lower Extremity: AROM WNL Strength: Right Upper Extremity: NT Left Upper Extremity: 5/5 throughout Right Lower Extremity: NT Left Lower Extremity: 5/5 throughout Bed Mobility/Transfers: Supine-sit: HOB 35 degrees, minAx1 to assist trunk to sitting due to inability to use right arm to assist with transfer Sit-stand: CGA with no device Bed-wheelchair: transferring to left side, CGA stand pivot transfer bed to wheelchair Stand-sit: CGA Pt positioned in wheelchair with R LE elevated, R UE in sling and supported with pillow under elbow Gait: unable- due to inability to weight bear with right upper or lower extremity. Balance: Static Sitting: normal Dynamic Sitting: normal Static Standing: poor Dynamic Standing: poor Special Tests: Mobility Limitations Standardized Measure [facility] 6 clicks Basic Mobility Inpatient Short Form: Raw Score: 13 Standardized Score: 36.74 CMS Score: 64.91% CMS Modifier: CL Informed Consent/Education: Patient instructed in purpose of PT consult and plan of care. Assessment: Pt is a 51yr old male who fell down stairs and sustained right ankle non displaced medial malleolus fracture, comminuted right calcaneal fracture, right wrist non displaced scaphoid fracture, right non displaced radial head fracture in setting of pelvic fractures x5, alcohol abuse, right 5th toe amputations. Patient presents with clinical signs and symptoms consistent with diagnosis, as demonstrated by the following impairment level findings: pain in right upper and lower extremities with all movement, decreased ability to transfer out of bed due to inability to use right UE, decreased static and dynamic standing balance due to NWB status R LE, unable to perform gait mobility due to NWB status R UE & LE requiring him to perform stand pivot transfers on left leg bed to wheelchair, wheelchair to toilet etc., inability to self propel wheelchair for mobility due to inability to use R UE due to multiple fractures. Pt was able to perform bed to wheelchair transfers with one person assist at this time. He will benefit from continued PT for transfer training to/from wheelchair and for bed mobility. Pt will be wheelchair dependent x 6-8 weeks until fractures heal and clears for weight bearing in right UE or LE. Discharge planning is a challenge, as patient has 1 step to enter this home and single steps between living areas on the first floor, making him unable to mobilize in wheelchair on first level of home setting, he also has a bedroom on the second floor of home and he is unable to do stairs at this time. He will require discharge to a single level home and will require assistance with wheelchair propulsion, ADLS, meals etc. If family or friend single level home is unavailable to accommodate these needs, he would benefit from transfer to a longterm care facility x 6-8 weeks until he can become weight bearing with R UE or LE. Pt will require a wheelchair with removable arms and elevating leg rests at discharge for his primary mode of mobility. He will be homebound. He will also require a 3 in 1 commode for toileting to stay on single level of home and tub bench is recommended for bathing unless he plans to sponge bath only. Impairments are contributing to the following functional limitations: AMPAC score CMS Score: 64.91% Patient is assessed as a *Moderate 98224 complexity based on the following: History: see above Examination: R elbow, R wrist, R ankle, functional limitations listed above Presentation: evolving Decision Making: AMPAC score CMS Score: 64.91% Goals: Goals X1 week 1. Supine-Sit independent 2. Sit-Supine independent 3. Sit-Stand SBA no device 4. Stand-Sit SBA 5. Bed-Chair SBA no device 6. Chair-Bed SBA no device 7. Gait: not a goal Plan of Care/Treatment Plan: 1-2x/day, 7 days/week x 1 week. Plan of care has been reviewed with the [employer] WORK[employer] CLERK providing the service under Physical Therapy direction. Initiate Physical Therapy intervention for strengthening, bed mobility, transfers, gait, stairs, balance training, use of assistive device. DISCHARGE RECOMMENDATIONS: Home to family or friend with single level home or transfer to longterm care facility for 6-8weeks DME: will require standard wheelchair with removable arms and elevating leg rests, 3 in 1 commode and tub transfer bench TREATMENT CODE/TIME: 25min IE 9:35 G Codes in the area mobility of walking and moving around: current status [id number] CL; projected status GP [id number]. Discharge status (if discharging) GP [id number]- CL based on AMPAC score CMS Score: 64.91% Karlene Myers PT
== END 2018-01-17 11:09 | disposition home or self-care (01) | DRG 470 ==
PROVIDERS: Admitting Provider Student in an Organized Health Care Education/Training Program; PCP Physician Assistant Medical; Visit Provider Student in an Organized Health Care Education/Training Program
PROC: 0SR904A Replacement of Right Hip Joint with Ceramic on Polyethylene Synthetic Substitute, Uncemented, Open Approach (ICD-10-PCS; CPT 27130; principal; 2018-01-16 08:50)
DX: M16.11 Unilateral primary osteoarthritis, right hip (principal); Z96.641 Presence of right artificial hip joint; M94.251 Chondromalacia, right hip; I10 Essential (primary) hypertension; E11.9 Type 2 diabetes mellitus without complications; E78.5 Hyperlipidemia, unspecified; E66.9 Obesity, unspecified; F32.9 Major depressive disorder, single episode, unspecified; K21.9 Gastro-esophageal reflux disease without esophagitis
CPT/HCPCS: 27130; 80048; 85027; 97110; 97162; 97530; 99238; NC; 72170; 73501; J0690; J1885

== ENCOUNTER 2018-01-29 14:15 | Outpatient (CLI) | payer MEDICAID, SELFPAY ==
--- NOTE | 2018-01-29 14:15 | DI.RAD_ITS ---
SYMPTOMS/DIAGNOSIS: S/P RIGHT TOTAL HIP ARTHROPLASTY RIGHT HIP AND AP PELVIS: Two views were obtained and show total hip joint replacement in position on the right. Components appear well seated. No other significant bony abnormality seen apart from slight DJD of the left hip.
== END 2018-01-29 14:35 ==
PROVIDERS: PCP Physician Assistant Medical; Visit Provider Student in an Organized Health Care Education/Training Program
DX: Z96.641 Presence of right artificial hip joint (principal); Z47.1 Aftercare following joint replacement surgery; M16.12 Unilateral primary osteoarthritis, left hip
CPT/HCPCS: 73502

== ENCOUNTER 2018-06-05 15:18 | Outpatient (REF) | payer MEDICARE, MEDICAID, SELFPAY ==
[2018-06-05 21:30] LABS: Absolute Basophil Count 0.01 k/cumm (0.0-0.2); Absolute Eosinophil Count 0.12 k/cumm (0.0-0.7); Absolute Lymphocyte Count 1.34 k/cumm (1.2-3.4); Absolute Monocyte Count 0.39 k/cumm (0.11-0.7); Absolute Neutrophil Count 2.83 k/cumm (1.2-6.7); Basophils % 0.2; Eosinophils % 2.6; HCT 36.2 % (36.0-46.0); HGB 12.1 g/dL (12.0-15.5); Lymphocytes % 28.6; Mean Corp. HGB Concentration 33.4 g/dL (32.0-36.0); Mean Corpuscular Hemoglobin 28.5 pg (27.0-33.0); Mean Corpuscular Volume 85.4 fL (80-95); Mean Platelet Volume 10.1 fL (8.0-11.0); Monocytes % 8.3; Neutrophils % 60.3; Platelet Count 222 x1000/uL (130-400); RBC 4.24 m/cumm (4.00-5.20); White Blood Cell Count 4.69 k/cumm (4.4-10.8)
[2018-06-05 22:20] LABS: ALT 26 U/L (12-78); AST 15 U/L (15-37); Albumin 3.7 g/dL (3.4-5.0); Alkaline Phosphatase 59 U/L (46-116); Anion Gap 11.4 mmol/L (3-11); BUN 16 mg/dL (7-18); Bilirubin, Total 0.4 mg/dL (0.2-1.0); CO2 24.6 mmol/L (21.0-32.0); CREATININE 0.95 mg/dL (0.55-1.02); Calcium 9.2 mg/dL (8.5-10.1); Chloride 106 mmol/L (98-107); Estimated GFR 59.04 (mL/min/1.73m2); Ferritin 18 ng/mL (8-388); Glucose 115 mg/dL (70-100); Potassium 4.3 mmol/L (3.5-5.1); Sodium 142 mmol/L (136-145); TSH 1.21 uIU/mL (0.358-3.74); Total Protein 6.6 g/dL (6.4-8.2)
[2018-06-05 22:46] LABS: Creatine Kinase 62 U/L (26-192)
== END 2018-06-05 15:38 ==
LOC: NCHCN 15:18
PROVIDERS: PCP Physician Assistant Medical; Visit Provider Nurse Practitioner Family
DX: R53.83 Other fatigue (principal); R71.8 Other abnormality of red blood cells; D64.9 Anemia, unspecified
CPT/HCPCS: 80053; 82550; 82728; 84443; 85025

== ENCOUNTER 2018-06-17 00:10 | Outpatient (CLI) | payer MEDICARE, SELFPAY ==
--- NOTE | 2018-06-17 13:30 | DI.DEXA_ITS ---
SYMPTOMS/DIAGNOSIS: PREVENTATIVE CARE, Z00.00, SCREENING FOR OSTEOPOROSIS IN POSTMENOPAUSAL WOMAN, Z78.0 DEXA SCAN WITH ARIEL: The ARIEL image shows no evidence of compression fractures. The bone mineral density measurements of the lumbar spine correspond to total T score of 3.4, in the normal range. The bone mineral density measurements of the left hip correspond to a total T score of 2.6 and a femoral neck T score of 1.5, in the normal range. The left forearm bone mineral density measurements correspond to a T score in the distal third of 0.6, in the normal range. IMPRESSION: Normal bone mineral density.
== END 2018-06-17 00:30 ==
PROVIDERS: PCP Physician Assistant Medical; Visit Provider Nurse Practitioner Family
DX: Z78.0 Asymptomatic menopausal state (principal); Z13.820 Encounter for screening for osteoporosis
CPT/HCPCS: 77080

== ENCOUNTER 2018-06-17 12:21 | Outpatient (REF) | payer MEDICARE, SELFPAY ==
[2018-06-17 22:42] LABS: Iron 74 ug/dL (50-175); Total Iron Binding Capacity 344 ug/dL (250-450); Transferrin Sat 22 % (15-50)
== END 2018-06-17 12:41 ==
LOC: NCHCN 12:21
PROVIDERS: PCP Physician Assistant Medical; Visit Provider Nurse Practitioner Family
DX: R53.83 Other fatigue (principal); R71.8 Other abnormality of red blood cells; D64.9 Anemia, unspecified; E11.9 Type 2 diabetes mellitus without complications
CPT/HCPCS: 83540; 83550

== ENCOUNTER 2018-06-19 14:10 | Emergency (ER) | payer MEDICARE, SELFPAY ==
[2018-06-19] VITALS (78 sets, daily range): BP systolic 99–155; BP diastolic 50–99; PULSE 81–101; RESP 12–31; TEMP 37.1–37.2; O2SAT 95–98
--- NOTE | 2018-06-19 14:58 | W.ED.GENAD ---
Discharge Plan Disposition Patient Disposition: HOME Discharge Details Chief Complaint: Dizzy/Sync Clinical Impression: Hypomagnesemia Primary Care Provider: Angela Handy ED Provider: Walter Bradley Home Meds and New Rx's Prescriptions: New magnesium oxide 420 mg tablet 420 mg PO DAILY Qty: 30 RF: 0 Continued hydrochlorothiazide 50 MG tablet 25 mg PO DAILY RF: 0 simvastatin 40 MG tablet 40 mg PO .QHS RF: 0 candesartan [Atacand] 32 MG tablet 32 mg PO DAILY RF: 0 omeprazole 20 MG capsule,delayed release(DR/EC) 20 mg PO HS RF: 0 doxazosin 2 MG tablet 4 mg PO .QHS RF: 0 fish oil-dha-epa 1 EACH capsule 1,200 mg PO BID RF: 0 Kx-S5-roy-nfzw-kqv-chws-bor 1 EACH tablet 1 tab PO .QHS RF: 0 glucosamine sulfate 2KCl 500 MG capsule 2,000 mg PO .QHS RF: 0 amlodipine 5 MG tablet 5 mg PO .QHS RF: 0 metformin 1,000 MG tablet 1,000 mg PO BID RF: 0 ascorbate calcium 500 MG tablet 500 mg PO DAILY RF: 0 multivitamin 1 EACH capsule 1 ea PO DAILY RF: 0 Stepan's wort 300 MG capsule 300 mg PO BID RF: 0 aspirin 81 mg tablet,chewable 81 mg PO DAILY RF: 0 Discharge Instructions Instructions: Hypomagnesemia (ED) Additional Instructions: Please contact your primary care physician to arrange follow-up. Return to the ER for any worsening or new concerning symptoms. Referrals: Angela Handy [Primary Care Provider] - Medical Decision Making 15:00 --63-year-old female here with generalized weakness and fatigue for the past 2 weeks. No signs of focal bacterial infection on exam. Screening EKG reviewed and interpreted by me: Sinus rhythm 74 bpm, normal axis, right bundle branch block is present, QRS duration of 140, nondiagnostic. Consider electrolyte abnormalities. Consider hypothyroidism. --Labs reviewed and significant for mild hypomagnesemia. This may be contributing to her generalized fatigue and weakness. She was given magnesium 1 g here today and plan to prescribe magnesium oxide and have her follow-up with her primary care physician for repeat lab. Disposition decision was made weighing the risks and benefits of hospitalization versus outpatient treatment, the risk for further decompensation, and the patient's wishes. The patient was stable and requested discharge. Prior to discharge, my usual and customary return precautions were reviewed with the patient - this included follow-up instructions and reason to return to the emergency department if condition worsens, does not improve as expected, or other new concerns arise. HPI General Mode of arrival: ambulatory. Date/Time Provider Initiated Documentation: 06/19/18 14:20. Limitations to Documentation: no limitations. Information obtained by: patient. HPI Narrative: 63-year-old female presents with chief complaint of generalized weakness and fatigue. Patient notes that she has been feeling generally crummyfor the past 2 weeks or so. Symptoms are moderate. No modifiers. Patient notes she has had a recent frequent sneezing. She denies cough. She has felt cold intermittently. She also notes loose stool for the past 3 days. She denies dysuria Patient also states that she is been generally off since her hip surgery in January 2018. She states that she has no pain ambulating. No joint swelling or warmth. She does have some intermittent twingesin her low back and in her groin. Related Data Home Medications Medication Instructions Recorded Confirmed [id number]-[id number]-fitj-zgi-lznt-bor 1 tab PO .QHS 02/11/13 06/19/18 candesartan [Atacand] 32 mg PO DAILY 02/11/13 06/19/18 doxazosin 4 mg PO .QHS 02/11/13 06/19/18 fish oil-dha-epa 1,200 mg PO BID 02/11/13 06/19/18 glucosamine sulfate 2KCl 2,000 mg PO .QHS 02/11/13 06/19/18 hydrochlorothiazide 25 mg PO DAILY 02/11/13 06/19/18 omeprazole 20 mg PO HS 02/11/13 06/19/18 simvastatin 40 mg PO .QHS 02/11/13 06/19/18 amlodipine 5 mg PO .QHS 08/31/13 06/19/18 Stepan's wort 300 mg PO BID 01/08/18 03/05/18 ascorbate calcium 500 mg PO DAILY 01/08/18 06/19/18 metformin 1,000 mg PO BID 01/08/18 06/19/18 multivitamin 1 ea PO DAILY 01/08/18 06/19/18 aspirin 81 mg PO DAILY 06/19/18 06/19/18 magnesium oxide 420 mg PO DAILY #30 tab 06/19/18 Previous Rx's Medication Instructions Recorded magnesium oxide 420 mg PO DAILY #30 tab 06/19/18 Allergies Allergy/AdvReac Type Severity Reaction Status Date / Time clindamycin Allergy Severe Dizziness/L Unverified 06/19/18 14:32 ightheade LISA Inhibitors AdvReac Intermediate cough Unverified 03/05/18 13:07 codeine AdvReac Intermediate vomiting Unverified 03/05/18 13:07 oxycodone AdvReac Intermediate Other (See Unverified 06/19/18 14:32 Comment) General Stated Complaint: Dizzy/Sync MARY: 3 Review of Systems Review of Systems All systems reviewed & are unremarkable except as noted in HPI and below Constitutional Reports as per HPI Cardiovascular Denies leg edema Gastrointestinal Denies abdominal pain, Reports loose stools and Denies vomiting PFSH Medical History Gastro-esophageal reflux disease without esophagitis (Acute 04/18/15) Social History Smoking and Tabacco status: Never Exam Const General: cooperative and no acute distress HENMT Head: normocephalic and atraumatic Mouth: moist mucous membranes Eyes Conjunctivae: normal conjunctivae Sclera: normal sclerae EOM: EOM intact bilaterally Neck Neck: trachea midline and supple Thyroid: thyroid normal Resp Auscultation: clear to auscultation bilaterally, no rales, no rhonchi and no wheezes Cardio Jugular venous pressure: no JVD Rate: regular rate and not tachycardic Rhythm: regular rhythm GI Palpation: soft, not firm, no guarding, no masses, not rigid and nontender Skin General skin exam: no rashes or lesions noted Neuro General: alert, awake, oriented x3 and tone normal Extrem General: no edema Psych Appearance: grossly normal Mental Status: mental status grossly normal Speech and Movement: speech and movement normal Course Vital Signs Temperature 37.1 C 06/19/18 14:21 Pulse 84 06/19/18 14:21 Respiratory Rate 16 06/19/18 14:21 Blood Pressure 144/69 H 06/19/18 14:21 Pulse Oximetry 98 06/19/18 14:21 Temperature 37.1 C 06/19/18 14:21 Temperature Source Skin 06/19/18 14:21 Pulse 84 06/19/18 14:21 Respiratory Rate 16 06/19/18 14:21 Blood Pressure 144/69 H 06/19/18 14:21 Blood Pressure Position Sitting 06/19/18 14:21 Pulse Oximetry 98 06/19/18 14:21 Oxygen Delivery Method Room Air 06/19/18 14:21 Oxygen Flow Rate 0 06/19/18 14:21
--- NOTE | 2018-06-19 15:06 | ED.GENADUL_ITS ---
Discharge Plan Disposition Patient Disposition: HOME Discharge Details Chief Complaint: Dizzy/Sync Clinical Impression: Hypomagnesemia Primary Care Provider: Angela Handy ED Provider: Walter Bradley Home Meds and New Rx's Prescriptions: New magnesium oxide 420 mg tablet 420 mg PO DAILY Qty: 30 RF: 0 Continued hydrochlorothiazide 50 MG tablet 25 mg PO DAILY RF: 0 simvastatin 40 MG tablet 40 mg PO .QHS RF: 0 candesartan [Atacand] 32 MG tablet 32 mg PO DAILY RF: 0 omeprazole 20 MG capsule,delayed release(DR/EC) 20 mg PO HS RF: 0 doxazosin 2 MG tablet 4 mg PO .QHS RF: 0 fish oil-dha-epa 1 EACH capsule 1,200 mg PO BID RF: 0 Ra-K4-cvj-jqyr-ztr-agix-bor 1 EACH tablet 1 tab PO .QHS RF: 0 glucosamine sulfate 2KCl 500 MG capsule 2,000 mg PO .QHS RF: 0 amlodipine 5 MG tablet 5 mg PO .QHS RF: 0 metformin 1,000 MG tablet 1,000 mg PO BID RF: 0 ascorbate calcium 500 MG tablet 500 mg PO DAILY RF: 0 multivitamin 1 EACH capsule 1 ea PO DAILY RF: 0 Stepan's wort 300 MG capsule 300 mg PO BID RF: 0 aspirin 81 mg tablet,chewable 81 mg PO DAILY RF: 0 Discharge Instructions Instructions: Hypomagnesemia (ED) Additional Instructions: Please contact your primary care physician to arrange follow-up. Return to the ER for any worsening or new concerning symptoms. Referrals: Angela Handy [Primary Care Provider] - Medical Decision Making 15:00 --63-year-old female here with generalized weakness and fatigue for the past 2 weeks. No signs of focal bacterial infection on exam. Screening EKG reviewed and interpreted by me: Sinus rhythm 74 bpm, normal axis, right bundle branch block is present, QRS duration of 140, nondiagnostic. Consider electrolyte abnormalities. Consider hypothyroidism. --Labs reviewed and significant for mild hypomagnesemia. This may be contributing to her generalized fatigue and weakness. She was given magnesium 1 g here today and plan to prescribe magnesium oxide and have her follow-up with her primary care physician for repeat lab. Disposition decision was made weighing the risks and benefits of hospitalization versus outpatient treatment, the risk for further decompensation, and the patie nt's wishes. The patient was stable and requested discharge. Prior to discharge, my usual and customary return precautions were reviewed with the patient - this included follow-up instructions and reason to return to the emergency department if condition worsens, does not improve as expected, or other new concerns arise. HPI General Mode of arrival: ambulatory . Date/Time Provider Initiated Documentation: 06/19/18 14:20 . Limitations to Documentation: no limitations . Information obtained by: patient . HPI Narrative: 63-year-old female presents with chief complaint of generalized weakness and fatigue. Patient notes that she has been feeling generally crummyfor the past 2 weeks or so. Symptoms are moderate. No modifiers. Patient notes she has had a recent frequent sneezing. She denies cough. She has felt cold intermittently. She also notes loose stool for the past 3 days. She denies dysuria Patient also states that she is been generally off since her hip surgery in January 2018. She states that she has no pain ambulating. No joint swelling or warmth. She does have some intermittent twingesin her low back and in her groin. Related Data Home Medications Medication Instructions Recorded Confirmed [id number]-[id number]-dtuw-sdo-tnlc-bor 1 tab PO .QHS 02/11/13 06/19/18 candesartan [Atacand] 32 mg PO DAILY 02/11/13 06/19/18 doxazosin 4 mg PO .QHS 02/11/13 06/19/18 fish oil-dha-epa 1,200 mg PO BID 02/11/13 06/19/18 glucosamine sulfate 2KCl 2,000 mg PO .QHS 02/11/13 06/19/18 hydrochlorothiazide 25 mg PO DAILY 02/11/13 06/19/18 omeprazole 20 mg PO HS 02/11/13 06/19/18 simvastatin 40 mg PO .QHS 02/11/13 06/19/18 amlodipine 5 mg PO .QHS 08/31/13 06/19/18 Stepan's wort 300 mg PO BID 01/08/18 03/05/18 ascorbate calcium 500 mg PO DAILY 01/08/18 06/19/18 metformin 1,000 mg PO BID 01/08/18 06/19/18 multivitamin 1 ea PO DAILY 01/08/18 06/19/18 aspirin 81 mg PO DAILY 06/19/18 06/19/18 magnesium oxide 420 mg PO DAILY #30 tab 06/19/18 Previous Rx's Medication Instructions Recorded magnesium oxide 420 mg PO DAILY #30 tab 06/19/18 Allergies Allergy/AdvReac Type Severity Reaction Status Date / Time clindamycin Allergy Severe Dizziness/L Unverified 06/19/18 14:32 ightheade LISA Inhibitors AdvReac Intermediate cough Unverified 03/05/18 13:07 codeine AdvReac Intermediate vomiting Unverified 03/05/18 13:07 oxycodone AdvReac Intermediate Other (See Unverified 06/19/18 14:32 Comment) General Stated Complaint: Dizzy/Sync MARY: 3 Review of Systems Review of Systems All systems reviewed & are unremarkable except as noted in HPI and below Constitutional Reports as per HPI Cardiovascular Denies leg edema Gastrointestinal Denies abdominal pain, Reports loose stools and Denies vomiting PFSH Medical History Gastro-esophageal reflux disease without esophagitis (Acute 04/18/15) Social History Smoking and Tabacco status: Never Exam Const General: cooperative and no acute distress HENMT Head: normocephalic and atraumatic Mouth: moist mucous membranes Eyes Conjunctivae: normal conjunctivae Sclera: normal sclerae EOM: EOM intact bilaterally Neck Neck: trachea midline and supple Thyroid: thyroid normal Resp Auscultation: clear to auscultation bilaterally, no rales, no rhonchi and no wheezes Cardio Jugular venous pressure: no JVD Rate: regular rate and not tachycardic Rhythm: regular rhythm GI Palpation: soft, not firm, no guarding, no masses, not rigid and nontender Skin General skin exam: no rashes or lesions noted Neuro General: alert, awake, oriented x3 and tone normal Extrem General: no edema Psych Appearance: grossly normal Mental Status: mental status grossly normal Speech and Movement: speech and movement normal Course Vital Signs Temperature 37.1 C 06/19/18 14:21 Pulse 84 06/19/18 14:21 Respiratory Rate 16 06/19/18 14:21 Blood Pressure 144/69 H 06/19/18 14:21 Pulse Oximetry 98 06/19/18 14:21 Temperature 37.1 C 06/19/18 14:21 Temperature Source Skin 06/19/18 14:21 Pulse 84 06/19/18 14:21 Respiratory Rate 16 06/19/18 14:21 Blood Pressure 144/69 H 06/19/18 14:21 Blood Pressure Position Sitting 06/19/18 14:21 Pulse Oximetry 98 06/19/18 14:21 Oxygen Delivery Method Room Air 06/19/18 14:21 Oxygen Flow Rate 0 06/19/18 14:21
[2018-06-19 15:08] LABS: Abs Immature Grans 0.01 k/cumm (0.0-0.09); Absolute Basophil Count 0.01 k/cumm (0.0-0.2); Absolute Eosinophil Count 0.13 k/cumm (0.0-0.7); Absolute Neutrophil Count 3.06 k/cumm (1.2-6.7); Basophils % 0.2; Eosinophils % 2.6; HCT 36.9 % (36.0-46.0); HGB 12.3 g/dL (12.0-15.5); Immature Grans % 0.2; Lymphocytes % 26.5; Mean Corp. HGB Concentration 33.3 g/dL (32.0-36.0); Mean Corpuscular Volume 83.9 fL (80-95); Mean Platelet Volume 10.2 fL (8.0-11.0); Monocytes % 8.1; Neutrophils % 62.4; Platelet Count 221 x1000/uL (130-400); RBC Distribution Width 12.8 % (11.7-14.6); White Blood Cell Count 4.91 k/cumm (4.4-10.8)
[2018-06-19 15:17] LABS: Bilirubin Negative (Negative); Blood Negative (Negative); Clarity Clear; Glucose Negative (Negative); Ketones Negative (Negative); Leukocyte Esterase Negative (Negative); Nitrite Negative (Negative); Urobilinogen 0.2 EU/dL (Up TO 0.2)
[2018-06-19 15:25] LABS: ALT 23 U/L (12-78); AST 15 U/L (15-37); Albumin 3.7 g/dL (3.4-5.0); Alkaline Phosphatase 62 U/L (46-116); Anion Gap 9.2 mmol/L (3-11); BUN 16 mg/dL (7-18); Bilirubin, Total 0.4 mg/dL (0.2-1.0); CO2 25.8 mmol/L (21.0-32.0); CREATININE 1.02 mg/dL (0.55-1.02); Calcium 9.3 mg/dL (8.5-10.1); Chloride 105 mmol/L (98-107); Estimated GFR 54.39 (mL/min/1.73m2); Glucose 149 mg/dL (70-100); Magnesium 1.6 mg/dL (1.8-2.4); Potassium 4.3 mmol/L (3.5-5.1); Sodium 140 mmol/L (136-145)
[2018-06-19 15:27] LABS: Troponin I < 0.02 ng/mL (0.00-0.06)
[2018-06-19 15:30] LABS: NT-proBNP 112 pg/mL; TSH (W/Ref FT4) 1.41 uIU/mL (0.358-3.74)
[2018-06-19] MEDS: MAGNESIUM SULFATE 1 GM/100 ML BAG IVPB (16:17)
== END 2018-06-19 18:17 | disposition home or self-care (01) ==
PROVIDERS: Emergency Provider Student in an Organized Health Care Education/Training Program; PCP Nurse Practitioner Family
DX: E83.42 Hypomagnesemia (principal)
CPT/HCPCS: 36415; 80053; 93005; 96365; 99284; 81003; 83735; 83880; 84443; 84484; 85025; 93010; J3475

== ENCOUNTER 2018-07-09 13:44 | Outpatient (CLI) | payer MEDICARE, SELFPAY | END 2018-07-09 14:04 | PROVIDERS: PCP Nurse Practitioner Family; Referring Provider Physician Assistant Medical; Visit Provider Student in an Organized Health Care Education/Training Program | DX: Z96.641 Presence of right artificial hip joint (principal); M17.11 Unilateral primary osteoarthritis, right knee; R53.83 Other fatigue | CPT/HCPCS: 99213 ==

== ENCOUNTER 2018-08-20 10:26 | Outpatient (REF) | payer MEDICARE, SELFPAY ==
[2018-08-20 20:28] LABS: Abs Immature Grans 0.01 k/cumm (0.0-0.09); Absolute Basophil Count 0.01 k/cumm (0.0-0.2); Absolute Eosinophil Count 0.13 k/cumm (0.0-0.7); Absolute Lymphocyte Count 1.14 k/cumm (1.2-3.4); Absolute Neutrophil Count 2.26 k/cumm (1.2-6.7); Basophils % 0.3; Eosinophils % 3.4; HCT 35.6 % (36.0-46.0); Immature Grans % 0.3; Lymphocytes % 29.6; Mean Corp. HGB Concentration 33.7 g/dL (32.0-36.0); Mean Corpuscular Hemoglobin 28.4 pg (27.0-33.0); Mean Corpuscular Volume 84.4 fL (80-95); Mean Platelet Volume 10.5 fL (8.0-11.0); Monocytes % 7.8; Neutrophils % 58.6; Platelet Count 207 x1000/uL (130-400); RBC 4.22 m/cumm (4.00-5.20); RBC Distribution Width 12.9 % (11.7-14.6); White Blood Cell Count 3.85 k/cumm (4.4-10.8)
[2018-08-20 20:45] LABS: ALT 23 U/L (12-78); AST 15 U/L (15-37); Albumin 3.8 g/dL (3.4-5.0); Alkaline Phosphatase 69 U/L (46-116); Anion Gap 9.1 mmol/L (3-11); BUN 16 mg/dL (7-18); Bilirubin, Total 0.5 mg/dL (0.2-1.0); CO2 28.9 mmol/L (21.0-32.0); CREATININE 0.96 mg/dL (0.55-1.02); Calcium 9.3 mg/dL (8.5-10.1); Chloride 105 mmol/L (98-107); Estimated GFR 58.33 (mL/min/1.73m2); Glucose 149 mg/dL (70-100); Magnesium 1.7 mg/dL (1.8-2.4); Potassium 4.2 mmol/L (3.5-5.1); Sodium 143 mmol/L (136-145); TSH 1.57 uIU/mL (0.358-3.74); Total Protein 6.6 g/dL (6.4-8.2)
== END 2018-08-20 10:46 ==
LOC: NCHCN 10:26
PROVIDERS: PCP Nurse Practitioner Family; Visit Provider Nurse Practitioner Family
DX: R53.83 Other fatigue (principal)
CPT/HCPCS: 80053; 83735; 84443; 85025

== ENCOUNTER 2018-09-08 16:34 | Outpatient (REF) | payer MEDICARE, MEDICAID, SELFPAY ==
[2018-09-08 21:36] LABS: HCT 38.4 % (36.0-46.0); HGB 12.8 g/dL (12.0-15.5); Mean Corp. HGB Concentration 33.3 g/dL (32.0-36.0); Mean Corpuscular Hemoglobin 27.8 pg (27.0-33.0); Mean Corpuscular Volume 83.5 fL (80-95); Mean Platelet Volume 10.2 fL (8.0-11.0); Platelet Count 228 x1000/uL (130-400); RBC Distribution Width 13.3 % (11.7-14.6); White Blood Cell Count 5.03 k/cumm (4.4-10.8)
[2018-09-08 21:47] LABS: C-Reactive Protein 0.65 mg/dL (0.0-0.3)
[2018-09-08 22:07] LABS: ESR 19 MM/HR (0-30)
== END 2018-09-08 16:54 ==
LOC: NCHCN 16:34
PROVIDERS: PCP Nurse Practitioner Family; Visit Provider Nurse Practitioner Family
DX: R51 Headache (principal)
CPT/HCPCS: 85027; 85652; 86140

== ENCOUNTER 2018-12-22 16:42 | Outpatient (REF) | payer OTHER, SELFPAY ==
[2018-12-22 21:57] LABS: Magnesium 1.7 mg/dL (1.8-2.4)
== END 2018-12-22 17:02 ==
LOC: NCHCN 16:42
PROVIDERS: PCP Nurse Practitioner Family; Visit Provider Nurse Practitioner Family
DX: M25.562 Pain in left knee (principal); M54.9 Dorsalgia, unspecified; E83.42 Hypomagnesemia; G47.9 Sleep disorder, unspecified
CPT/HCPCS: 83735

== ENCOUNTER 2019-02-09 11:41 | Outpatient (CLI) | payer OTHER, SELFPAY ==
--- NOTE | 2019-02-09 11:03 | DI.RAD_ITS ---
EXAM: XR HIP RT COMPLETE AP PELVIS CLINICAL HISTORY: ANNUAL F/U S/P MADELAINE. TECHNIQUE: 2D digital imaging was performed. COMPARISON: XR hip RT complete AP pelvis from 01/29/2018 FINDINGS: BONES: No acute fracture is present. There are again seen postsurgical changes of a right total hip r eplacement. The orthopedic hardware shows no evidence of failure. JOINTS: No dislocation present. SOFT TISSUE: Normal. IMPRESSION: Stable right THR. Unremarkable radiographs of the pelvis.
== END 2019-02-09 12:01 ==
PROVIDERS: PCP Nurse Practitioner Family; Referring Provider Nurse Practitioner Family; Visit Provider Student in an Organized Health Care Education/Training Program
DX: Z96.641 Presence of right artificial hip joint (principal); Z47.1 Aftercare following joint replacement surgery
CPT/HCPCS: 99213; 73502

== ENCOUNTER 2019-03-11 01:06 | Outpatient (CLI) | payer OTHER, SELFPAY ==
--- NOTE | 2019-03-11 12:15 | DI.US_ITS ---
EXAM: US LOWER EXTREMITY VENOUS LT CLINICAL HISTORY: LT CALF PAIN M79.662, R/O DVT, NO ERYTHEMA TECHNIQUE: Ultrasound performed using standard protocol. COMPARISON: No priors for comparison. FINDINGS: The common femoral, femoral, and popliteal veins show normal compression, augmentation, and color violet w. There is no evidence of a left lower extremity deep venous thrombus. The posterior tibialis vein shows normal augmentation and color flow. Note is made of a 3.1 x 1.5 x 3.8 cm popliteal cyst. The saphenofemoral junction is unremarkable. IMPRESSION: 1. No evidence of a left lower extremity DVT. 2. 3.1 x 1.5 x 3.8 cm popliteal cyst.
== END 2019-03-11 01:26 ==
PROVIDERS: PCP Nurse Practitioner Family; Visit Provider Nurse Practitioner Family
DX: M79.662 Pain in left lower leg (principal); M71.22 Synovial cyst of popliteal space [Baker], left knee
CPT/HCPCS: 93971

== ENCOUNTER 2019-03-13 00:34 | Outpatient (CLI) | payer OTHER, SELFPAY ==
--- NOTE | 2019-03-13 15:19 | DI.MAMMO_ITS ---
EXAM: MG MAMMO SCREENING MG MAMMO SCREENING CLINICAL HISTORY: SCREENING, PREVENTIVE HEALTH CARE Z00.00 SCREENING, PREVENTIVE HEALTH CARE Z00.00 TECHNIQUE: Mammograms were interpreted according to the usual protocol including computer analysis w ith CAD system, tomosynthesis and C-view imaging. COMPARISON: [id number] FINDINGS: The breasts are composed of scattered fibroglandular densities, Breast Density category B. No suspicious masses or suspicious microcalcifications are seen. No skin thickening or abnormal axillary lymph nodes are seen. There has been no significant change from prior exams. IMPRESSION: BIRADS Category 1, negative mammogram. Yearly screening mammography is recommended.
== END 2019-03-13 00:54 ==
PROVIDERS: PCP Nurse Practitioner Family; Visit Provider Nurse Practitioner Family
DX: Z12.31 Encounter for screening mammogram for malignant neoplasm of breast (principal)
CPT/HCPCS: 77063; 77067

== ENCOUNTER 2019-06-08 09:43 | Outpatient (REF) | payer OTHER, SELFPAY ==
[2019-06-08 21:47] LABS: Magnesium 1.8 mg/dL (1.8-2.4)
== END 2019-06-08 10:03 ==
LOC: NCHCN 09:43
PROVIDERS: PCP Nurse Practitioner Family; Visit Provider Nurse Practitioner Family
DX: E83.42 Hypomagnesemia (principal)
CPT/HCPCS: 83735

== ENCOUNTER 2019-06-15 01:40 | Outpatient (CLI) | payer OTHER, SELFPAY ==
--- NOTE | 2019-06-15 10:35 | DI.RAD_ITS ---
EXAM: XR FOOT LT COMPLETE INDICATION: LOCALIZED SWELLING LT FOOT, R22.42. COMPARISON: LEFT FOOT COMPLETE from 02/28/2015 TECHNIQUE: 2D digital imaging was performed. FINDINGS: No acute fracture or dislocation is present. There are mild degenerative changes seen in the tarsal joints, the tarsometatarsal joints and the 1st metatarsophalangeal joint. The bones are normally min eralized. There is a small spur at the plantar surface of the calcaneus. There is a small enthesoph yte at the Achilles insertion site. There is mild soft tissue swelling on the dorsum of the foot. N o radiopaque foreign bodies are seen in the soft tissues. IMPRESSION: Mild degenerative changes of the left foot. Mild soft tissue swelling on the dorsum of the foot.
== END 2019-06-15 02:00 ==
PROVIDERS: PCP Nurse Practitioner Family; Visit Provider Nurse Practitioner Family
DX: R22.42 Localized swelling, mass and lump, left lower limb (principal); M79.672 Pain in left foot; M19.072 Primary osteoarthritis, left ankle and foot; M79.89 Other specified soft tissue disorders; M77.32 Calcaneal spur, left foot
CPT/HCPCS: 73630

== ENCOUNTER 2020-01-13 20:54 | Outpatient (REF) | payer OTHER, SELFPAY ==
[2020-01-13 22:58] LABS: Abs Immature Grans 0.01 10^3/uL (0.0-0.06); Absolute Basophil Count 0.02 10^3/uL (0.0-0.2); Absolute Eosinophil Count 0.16 10^3/uL (0.0-0.7); Absolute Lymphocyte Count 1.41 10^3/uL (1.2-3.4); Absolute Monocyte Count 0.39 10^3/uL (0.1-0.8); Absolute Neutrophil Count 2.89 10^3/uL (1.2-6.7); Basophils % 0.4; Eosinophils % 3.3; HCT 38.2 % (36.0-46.0); HGB 12.2 g/dL (11.2-15.7); Immature Grans % 0.2; Lymphocytes % 28.9; MCH 27.7 pg (27.0-33.0); MCHC 31.9 % (32.0-36.0); MCV 86.6 fL (80-95); MPV 10.3 fL (8.0-11.0); Neutrophils % 59.2; Nucleated RBC 0 %; Platelet Count 216 10^3/uL (130-400); RBC 4.41 10^6/uL (3.93-5.22); RDW 12.9 % (11.7-14.6); RDW-SD 40.6 fL; WBC 4.88 10^3/uL (4.4-10.8)
[2020-01-13 23:20] LABS: ALT 30 U/L (14-59); AST 15 U/L (15-37); Anion Gap 9.8 mmol/L (3-11); BUN 15 mg/dL (7-18); CO2 25.2 mmol/L (21.0-32.0); CREATININE 0.99 mg/dL (0.55-1.02); Calcium 9.3 mg/dL (8.5-10.1); Calculated LDL 39 mg/dL (<100); Chloride 108 mmol/L (98-107); Cholesterol 144 mg/dL (<200); Estimated GFR 56.12 (mL/min/1.73m2); Glucose 129 mg/dL (74-106); HDL Cholesterol 80 mg/dL (40-60); Magnesium 1.8 mg/dL (1.8-2.4); Potassium 4.9 mmol/L (3.5-5.1); Sodium 143 mmol/L (136-145); Triglyceride 128 mg/dL (<150)
[2020-01-13 23:34] LABS: Creatine Kinase 74 U/L (26-192)
[2020-01-14 04:39] LABS: Vitamin D 25 Total 73.1 ng/ml (30-100)
== END 2020-01-13 21:14 ==
LOC: NCHCN 20:54
PROVIDERS: PCP Nurse Practitioner Family; Visit Provider Nurse Practitioner Family
DX: R53.83 Other fatigue (principal); I10 Essential (primary) hypertension; F03.90 Unspecified dementia, unspecified severity, without behavioral disturbance, psychotic disturbance, mood disturbance, and anxiety; E78.5 Hyperlipidemia, unspecified; E66.8 Other obesity; E83.42 Hypomagnesemia; R22.42 Localized swelling, mass and lump, left lower limb; K30 Functional dyspepsia
CPT/HCPCS: 80048; 80061; 82306; 82550; 83735; 84443; 84450; 84460; 85025

== ENCOUNTER 2020-08-24 16:56 | Outpatient (REF) | payer OTHER, SELFPAY ==
[2020-08-24 20:07] LABS: Anion Gap 8.8 mmol/L (3-11); BUN 24 mg/dL (7-18); CO2 24.2 mmol/L (21.0-32.0); CREATININE 1.1 mg/dL (0.55-1.02); Calcium 9.6 mg/dL (8.5-10.1); Chloride 107 mmol/L (98-107); Estimated GFR 49.54 (mL/min/1.73m2); Glucose 93 mg/dL (74-106); Potassium 4.9 mmol/L (3.5-5.1); Sodium 140 mmol/L (136-145); TSH (W/Ref FT4) 1.01 uIU/mL (0.36-3.74)
== END 2020-08-24 16:57 | disposition home or self-care (01) ==
LOC: NCHCN 16:56
PROVIDERS: PCP Nurse Practitioner Family; Visit Provider Nurse Practitioner Family
DX: I10 Essential (primary) hypertension (principal); R53.83 Other fatigue; E11.9 Type 2 diabetes mellitus without complications
CPT/HCPCS: 80048; 84443

== ENCOUNTER 2021-01-23 10:14 | Outpatient (REF) | payer OTHER, MEDICAID, SELFPAY ==
[2021-01-23 20:49] LABS: HCT 37.6 % (36.0-46.0); HGB 12.2 g/dL (11.2-15.7); MCH 27.2 pg (27.0-33.0); MCHC 32.4 % (32.0-36.0); MCV 83.7 fL (80-95); MPV 10.7 fL (8.0-11.0); Platelet Count 203 10^3/uL (130-400); RBC 4.49 10^6/uL (3.93-5.22); RDW 13.3 % (11.7-14.6); RDW-SD 40.8 fL; WBC 4.09 10^3/uL (4.4-10.8)
[2021-01-23 21:22] LABS: ALT 34 U/L (14-59); AST 17 U/L (15-37); HDL Cholesterol 84 mg/dL (40-60); LDL CHOLESTEROL 45 mg/dL (<100)
[2021-01-23 21:50] LABS: Creatine Kinase 71 U/L (26-192)
== END 2021-01-23 10:15 | disposition home or self-care (01) ==
LOC: NCHCN 10:14
PROVIDERS: PCP Nurse Practitioner Family; Referring Provider Nurse Practitioner Family; Visit Provider Nurse Practitioner Family
DX: I10 Essential (primary) hypertension (principal); E78.5 Hyperlipidemia, unspecified; R53.83 Other fatigue
CPT/HCPCS: 82550; 83721; 85027; 83718; 84450; 84460

== ENCOUNTER 2021-11-29 16:50 | Outpatient (REF) | payer MEDICARE, SELFPAY ==
[2021-11-29 16:01] LABS: Anion Gap 10.4 mmol/L (3-11); BUN 23 mg/dL (7-18); CO2 24.6 mmol/L (21.0-32.0); CREATININE 1.2 mg/dL (0.55-1.02); Calcium 9.2 mg/dL (8.5-10.1); Chloride 106 mmol/L (98-107); Estimated GFR 44.68 (mL/min/1.73m2); Ferritin 12 ng/mL (8-252); Glucose 107 mg/dL (74-106); Potassium 4.5 mmol/L (3.5-5.1); Sodium 141 mmol/L (136-145); TSH 1.25 uIU/mL (0.36-3.74); Vitamin B12 296 pg/mL (193-986)
[2021-11-29 16:03] LABS: Hemoglobin A1C 6.9 % (<5.7)
== END 2021-11-29 16:51 | disposition home or self-care (01) ==
LOC: NCHCN 16:50
PROVIDERS: PCP Nurse Practitioner Family; Visit Provider Nurse Practitioner Family
DX: E78.5 Hyperlipidemia, unspecified (principal); I10 Essential (primary) hypertension; E11.9 Type 2 diabetes mellitus without complications; F41.9 Anxiety disorder, unspecified; G63 Polyneuropathy in diseases classified elsewhere; G89.29 Other chronic pain; M79.673 Pain in unspecified foot
CPT/HCPCS: 80048; 82306; 82607; 82728; 83036; 84443

== ENCOUNTER → 2021-12-01 00:43 | Outpatient (CLI) | payer MEDICARE, SELFPAY ==
--- NOTE | 2021-12-01 13:53 | DI.RAD_ITS ---
Exam(s) XR LUMBAR SPINE COMPLETE EXAM: XR LUMBAR SPINE COMPLETE CLINICAL HISTORY: CHRONIC LOW BACK PAIN, M54.59,WORSENING ARTHRITIS. TECHNIQUE: 2D digital imaging was performed. Five views. COMPARISON: DX XR DEXA BONE DENSITY W/WO ARIEL from 06/17/2018 FINDINGS: BONES: There is partial sacralization of the L5 vertebral body with sacralization of the left L5 garcia sverse process. No fracture or destructive lesion. Vertebral bodies are normal in height. Prominent endplate osteophytes is seen in the lower thoracic and upper lumbar spine. Prominent facet hypertro phy identified in the lower lumbar levels.. No spondylolysis or spondylolisthesis. DISKS: Severe narrowing of the T12-L1 and L1-2 disc spaces. Remaining disc spaces are maintained. ALIGNMENT: Lumbar spinal alignment is within normal limits. SOFT TISSUE: 2 large calcified gallstones are noted. The aorta is calcified but normal in diameter. IMPRESSION: Advanced degenerative disc changes in the lower thoracic and upper lumbar spine. Prominent facet deg enerative changes of the lower lumbar region. DATA REPOSITORY: RADIATION DOSE DELIVERED:
--- NOTE | 2021-12-01 13:53 | DI.RAD_ITS ---
Exam(s) XR HIP RT COMPLETE AP PELVIS EXAM: XR HIP RT COMPLETE AP PELVIS INDICATION: RT HIP PAIN, M25.551. COMPARISON: CR XR hip RT complete AP pelvis from 01/29/2018 CR XR HIP RT COMPLETE AP PELVIS from 02/09/2019 CR XR LUMBAR SPINE COMPLETE from 12/01/2021 TECHNIQUE: 2D digital imaging was performed. Three views. FINDINGS: There is a right hip prosthesis which appears unchanged. There is no suggestion of loosening. No fr acture, lytic or blastic lesions are seen. The left hip is unremarkable. There is minimal spurring at the SI joints. IMPRESSION: Unremarkable right hip prosthesis. DATA REPOSITORY: RADIATION DOSE DELIVERED:
== END ==
PROVIDERS: PCP Nurse Practitioner Family; Visit Provider Nurse Practitioner Family
DX: M54.59 Other low back pain (principal); M25.551 Pain in right hip
CPT/HCPCS: 72110; 73502

== ENCOUNTER 2022-01-26 12:30 | Outpatient (REF) | payer MEDICARE, SELFPAY ==
[2022-01-26 13:59] LABS: C Diff PCR Negative (Negative)
== END 2022-01-26 12:31 | disposition home or self-care (01) ==
LOC: NCHCN 12:30
PROVIDERS: PCP Nurse Practitioner Family; Visit Provider Nurse Practitioner Family
DX: U07.1 COVID-19 (principal); R19.7 Diarrhea, unspecified
CPT/HCPCS: 87493

== ENCOUNTER → 2022-03-05 01:49 | Outpatient (CLI) | payer MEDICARE, SELFPAY ==
--- NOTE | 2022-03-05 15:15 | DI.MAMMO_ITS ---
Exam(s) MAMMO SCREENING EXAM: MAMMO SCREENING CLINICAL HISTORY: SCREENING, Z12.39 TECHNIQUE: Mammograms were interpreted according to the usual protocol including computer analysis w [email or web address] CAD system, tomosynthesis and C-view imaging. COMPARISON: 2013 through 2018 FINDINGS: The breasts are composed of scattered fibroglandular densities, Breast Density category B. No suspicious masses or suspicious microcalcifications are seen. No skin thickening or abnormal axillary lymph nodes are seen. There has been no significant change from prior exams. IMPRESSION: BI-RADS Category 1, Negative mammogram Yearly screening mammography is recommended. Breast Density - Category B, scattered fibroglandular densities. A negative radiographic report should not delay biopsy if a dominant or clinically suspicious mass is present. Up to ten percent of cancers are not identified on mammography. A negative report may reinforce clinical impression. Adenosis and dense breasts may obscure an underlying neoplasm. False positive reports average 6 to 10%. Patient will receive a letter notifying them of these results.
== END ==
PROVIDERS: PCP Nurse Practitioner Family; Visit Provider Nurse Practitioner Family
DX: Z12.31 Encounter for screening mammogram for malignant neoplasm of breast (principal)
CPT/HCPCS: 77063; 77067

== ENCOUNTER 2022-03-10 18:44 | Emergency (ER) | payer MEDICARE, SELFPAY ==
[2022-03-10 18:52] VITALS: BP 147/60; PULSE 79; RESP 16; TEMP 36.7; O2SAT 97
--- NOTE | 2022-03-10 19:00 | RT.EKG_ITS ---
APPROVED REPORT Exam: Resting ECG Reason for Exam: dizzy Patient Location: E HR:79 bpm ECG Measurements Heart Rate 79 AXIS ID 152 P 60 QRSd 139 QRS 35 QT 410 T 76 QTc 470 Conclusion Sinus rhythm...normal P axis, V-rate 60- 99 Right bundle branch block...QRSd>120, terminal axis(90,270) ST elevation, consider inferior injury...ST >0.08mV, II III aVF sinus rhythm, normal axis, RBBB
--- NOTE | 2022-03-10 19:30 | DI.CT_ITS ---
Exam(s) CT BRAIN NECK CTA EXAM: CT BRAIN NECK CTA CLINICAL HISTORY: Dizziness, Headache. TECHNIQUE: Imaging Protocol: Axial CT angiography was performed with multi-slice acquisition and mu lti-planar and/or 3D reconstructions. CONTRAST MATERIAL: Intravenous: Omnipaque 350 contrast volume:80 mL COMPARISON: CT LEFT LOWER EXTREM W/WO CONTRAS from 11/18/2017 FINDINGS: CT Head W/O: Ventricles and Extra axial spaces: Normal in size and morphology for the patient's age. Hemorrhage: None. Cerebral parenchyma: Normal. Midline shift: None. Brainstem/Cerebellum: Normal. Calvarium: Normal. Visualized Paranasal sinuses/Mastoids: Clear. Soft Tissues: Unremarkable. CTA Neck W: Common Carotid: Right: No dissection, occlusion or significant stenosis. Left: No dissection, occlusion or significant stenosis. External Carotid: Right: No occlusion or significant stenosis. Left: No occlusion or significant stenosis. Internal Carotid: Right: No dissection, occlusion or significant stenosis. There is moderate calcific plaque at the or igin. There is no significant stenosis. Left: No dissection, occlusion or significant stenosis. Vertebral Artery: Right: No dissection, occlusion or significant stenosis. Left: No dissection, occlusion or significant stenosis. Lung Apices: Normal. Bones: Within normal limits for the patient's age. Moderate cervical spondylosis. Soft Tissues: Normal. There is artifact from the patient's dental amalgam. Thyroid gland: Unremarkable. CTA Brain W: Internal Carotid Arteries: Normal. Anterior Cerebral Arteries: Right: No aneurysm, occlusion or significant stenosis. Left: No aneurysm, occlusion or significant stenosis. Middle Cerebral Arteries: Right: No aneurysm, occlusion or significant stenosis. Left: No aneurysm, occlusion or significant stenosis. Posterior Cerebral Arteries: Right: No aneurysm, occlusion or significant stenosis. The right posterior cerebral artery arises fr om the posterior communicating artery. This is a normal variant. Left: No aneurysm, occlusion or significant stenosis. Vertebral Arteries: Right: No aneurysm, occlusion or significant stenosis. Left: No aneurysm, occlusion or significant stenosis. Basilar Artery: No aneurysm, occlusion or significant stenosis. IMPRESSION: 1. No large vessel occlusion or significant stenosis on the CT angiography of the head. 2. No acute intracranial process. 3. No occlusion or significant stenosis on the CT angiography of the neck. RADIATION DOSE DELIVERED: 1,227.83mGy.cm Total DLP DATA REPOSITORY: All CT scans at this facility are submitted to the National Radiology Data Registry (NRDR) Dose Index Registry (DIR) with the [employer] (A[employer]). RADIATION OPTIMIZATION: All CT scans at this facility use at least one of these dose optimization te chniques: automated exposure control; mA and/or kV adjustment per patient size (includes targeted exa ms where dose is matched to clinical indication); or iterative reconstruction.
--- NOTE | 2022-03-10 19:31 | ED.GENADUL_ITS ---
Discharge Plan Disposition Patient Disposition: HOME Condition: Stable Discharge Details Clinical Impression: Dizziness Primary Care Provider: Angela Handy ED Provider: Silvia Parry Home Meds and New Rx's Prescriptions: New meclizine 25 mg tablet 25 mg PO BID PRN (Reason: dizziness) Qty: 14 0RF Rx Instructions: Take 1 tablet twice daily as needed for dizziness Continued simvastatin 40 MG tablet 40 mg PO .QHS candesartan [Atacand] 32 MG tablet 32 mg PO DAILY omeprazole 20 MG capsule,delayed release(DR/EC) 20 mg PO HS doxazosin 2 MG tablet 4 mg PO .QHS Label Comments: 02/01/17-PT STATES CURRENTLY TAKING 4MG--HS, RN fish oil-dha-epa 1 EACH capsule 1,200 mg PO BID Oj-R6-lcv-tros-vft-udhk-bor 1 EACH tablet 1 tab PO .QHS glucosamine sulfate 2KCl 500 MG capsule 2,000 mg PO .QHS Label Comments: 02/01/17-PT STATES CURRENT DOSE IS 2000-JHOAN, RN amlodipine 5 MG tablet 5 mg PO .QHS metformin 1,000 MG tablet 1,000 mg PO BID ascorbate calcium (vitamin C) 500 MG tablet 500 mg PO DAILY multivitamin 1 EACH capsule 1 ea PO DAILY Stepan's wort 300 MG capsule 300 mg PO BID aspirin 81 mg tablet,chewable 81 mg PO DAILY magnesium oxide 420 mg tablet 420 mg PO DAILY Qty: 30 0RF Discharge Instructions Instructions: Dizziness (ED) Additional Instructions: CT shows no evidence of stroke or aneurysm or any other intracranial abnormality. Your magnesium was slightly low continue taking your magnesium supplement as prescribed. Your kidney functions are slightly elevated please follow-up and discuss this with your primary care provider. Take the meclizine as directed for dizziness. Follow up with primary care provider in 3-5 days. Return to ED sooner if any worsening or concerns. Increase oral fluids. Referrals: Angela Handy [Primary Care Provider] - 5 days Medical Decision Making 67-year-old female presents to the ER with chief complaint of dizziness over the last 3 to 4 days which began suddenly. She reports some ringing in her ears, reports having to walk with a walker which is not her norm. Associated with headache, diarrhea. CBC, CMP, troponin, EKG performed by staffing specialist, CTA brain and neck, urinalysis and meclizine 25 mg p.o. ordered. CBC within normal limits, CMP shows BUN 21 creatinine 1.1, GFR 54 this is unchanged within the last few lab draws, glucose 194, magnesium slightly low at 1.6, initial troponin within normal limits urinalysis within normal limits no UTI. Will give oral magnesium. CTA brain and neck within normal limits no occlusion stenosis or any abnormalities noted. On patient reevaluation she reports feeling somewhat better. I did discuss follow-up with primary care provider and strict return instructions. Patient discharged home with meclizine prescription. This text was generated using [employer] system, please disregard any oddities of phrase or misspellings. Lab Data Lab results reviewed: Yes I reviewed the patient's lab results. Labs: Laboratory Tests Range/Units 03/10/22 03/10/22 03/10/22 19:30 19:30 20:37 WBC (4.4-10.8) 10^3/uL 5.37 RBC (3.93-5.22) 10^6/uL 4.52 Hgb (11.2-15.7) g/dL 12.6 Hct (36.0-46.0) % 37.8 MCV (80-95) fL 84 MCH (27.0-33.0) pg 27.9 MCHC (32.0-36.0) % 33.3 RDW (11.7-14.6) % 13.8 Plt Count (130-400) 10^3/uL 210 MPV (8.0-11.0) fL 9.7 Immature Gran % 0.4 Neutrophils % 65.4 Lymphocytes % 23.8 Monocytes % 7.8 Eosinophils % 2.4 Basophils % 0.2 Nucleated RBC % (0.0-0.3) % 0.0 Absolute Neutrophils (1.2-6.7) 10^3/uL 3.51 Absolute Lymphocytes (1.2-3.4) 10^3/uL 1.28 Absolute Monocytes (0.1-0.8) 10^3/uL 0.42 Absolute Eosinophils (0.0-0.7) 10^3/uL 0.13 Absolute Basophils (0.0-0.2) 10^3/uL 0.01 Sodium (136-145) mmol/L 140 Potassium (3.5-5.1) mmol/L 4.1 Chloride (98-107) mmol/L 106 Carbon Dioxide (21.0-32.0) mmol/L 23.9 Anion Gap (3-11) mmol/L 10.1 BUN (7-18) mg/dL 21 H Creatinine (0.55-1.02) mg/dL 1.1 H Est GFR (CKD-EPI 2020) (mL/min/1.73m2) 54.39 Glucose (74-106) mg/dL 194 H Calcium (8.5-10.1) mg/dL 9.4 Magnesium (1.8-2.4) mg/dL 1.6 L Total Bilirubin (0.2-1.0) mg/dL 0.4 AST (15-37) U/L 12 L ALT (14-59) U/L 20 Alkaline Phosphatase (46-116) U/L 69 Troponin I (<or=60) ng/L < 50 Total Protein (6.4-8.2) g/dL 7.3 Albumin (3.4-5.0) g/dL 4.0 Urine Color (Yellow) Yellow Urine Clarity (Clear) Clear Urine pH (5-8) 6.0 Ur Specific [place] (1.005-1.025) 1.010 Urine Protein (Negative) mg/dL Negative Urine Ketones (Negative) mg/dL Negative Urine Blood (Negative) Negative Urine Nitrite (Negative) Negative Urine Bilirubin (Negative) Negative Urine Urobilinogen (Up TO 0.2) EU/dL 0.2 Ur Leukocyte Esterase (Negative) Negative Urine Glucose (Negative) mg/dL Negative HPI General Mode of arrival: ambulatory . Date/Time Provider Initiated Documentation: 03/10/22 19:14 . Limitations to Documentation: no limitations . Information obtained by: patient, RN notes reviewed and old records reviewed . HPI Narrative: 67-year-old female presents to the ER with chief complaint of dizziness over the last 3 to 4 days which began suddenly. She reports some ringing in her ears, reports having to walk with a walker which is not her norm. Associated with headache, diarrhea. She denies any chest pain shortness of breath or abdominal pain. No focal neurodeficits noted on exam. She is alert and oriented x4. She has been taking some motion sickness pills which she does not know the name of last taken at 2 PM. Past medical history includes hyperlipidemia, depression, obesity, diabetes mellitus, osteoarthritis and GERD. Related Data Home Medications Medication Instructions Recorded Confirmed cbyqnab-[id number]-keu-Rf-lvtyl-mnhz-boron 1 tab PO .QHS 02/11/13 03/10/22 600 mg-200 unit-40 mg-7.5 mg tablet candesartan 32 mg tablet (Atacand) 32 mg PO DAILY 02/11/13 03/10/22 doxazosin 2 mg tablet 4 mg PO .QHS 02/11/13 03/10/22 fish oil-dha-epa 1,200 mg-144 1,200 mg PO BID 02/11/13 03/10/22 mg-216 mg capsule glucosamine sulfate 2KCl 500 mg 2,000 mg PO .QHS 02/11/13 03/10/22 capsule omeprazole 20 mg capsule,delayed 20 mg PO HS 02/11/13 03/10/22 release simvastatin 40 mg tablet 40 mg PO .QHS 02/11/13 03/10/22 amlodipine 5 mg tablet 5 mg PO .QHS 08/31/13 03/10/22 [place]'s wort 300 mg capsule 300 mg PO BID 01/08/18 03/10/22 ascorbate calcium (vitamin C) 500 500 mg PO DAILY 01/08/18 03/10/22 mg tablet metformin 1,000 mg tablet 1,000 mg PO BID 01/08/18 03/10/22 multivitamin 1 ea PO DAILY 01/08/18 03/10/22 aspirin 81 mg chewable tablet 81 mg PO DAILY 06/19/18 03/10/22 magnesium oxide 420 mg tablet 420 mg PO DAILY #30 tabs 06/19/18 03/10/22 meclizine 25 mg tablet 25 mg PO BID PRN dizziness #14 tabs 03/10/22 Previous Rx's Medication Instructions Recorded magnesium oxide 420 mg tablet 420 mg PO DAILY #30 tabs 06/19/18 meclizine 25 mg tablet 25 mg PO BID PRN dizziness #14 tabs 03/10/22 Allergies Allergy/AdvReac Type Severity Reaction Status Date / Time clindamycin Allergy Severe Dizziness/L Unverified 07/09/18 13:34 ightheade LISA Inhibitors AdvReac Intermediate cough Unverified 07/09/18 13:34 codeine AdvReac Intermediate vomiting Unverified 07/09/18 13:34 oxycodone AdvReac Intermediate Other (See Unverified 07/09/18 13:34 Comment) General Stated Complaint: Dizzy/Sync MARY: 3 Review of Systems All systems reviewed & are unremarkable except as noted in HPI and below Constitutional Constitutional: Reports headache(s) ENT Ears, Nose, Mouth, and Throat: Reports vertigo, Reports dizziness, Reports headache(s) and Reports disequilibrium Cardiovascular Cardiovascular: Denies chest pain and Denies dyspnea Respiratory Respiratory: Denies dyspnea Gastrointestinal Gastrointestinal: Denies abdominal pain and Reports diarrhea Musculoskeletal Musculoskeletal: Reports abnormal gait Neurologic Neurologic: Reports as per HPI, Denies abnormal speech, Reports abnormal gait, Denies confusion, Reports vertigo, Reports dizziness, Reports headache(s), Denies localized weakness and Reports disequilibrium Psychiatric Psychiatric: Denies confusion PFSH All Active Problems (Updated 03/10/22 @ 21:21 by Silvia Parry NP) Dizziness (Acute) History of total right hip replacement (Acute 01/16/18) Neoplasm of unspecified behavior of bone, soft tissue, and skin (Acute) Hyperlipidemia (Chronic) Depression (Chronic) Obesity (Chronic) Diabetes mellitus (Chronic) Essential (primary) hypertension (Chronic) Primary osteoarthritis of right knee (Acute 07/10/17) Gastro-esophageal reflux disease without esophagitis (Acute 04/18/15) Social History Smoking/Tobacco Use Status: Never Smoking risk assessment performed?: Yes Alcohol Intake: never Drug use: Never Substance use type: does not use Current gender identity: female Exam Narrative Exam Narrative: Constitutional: Alert and oriented x3. Appears stated age. Normal body habitus. Head: Normocephalic, no trauma. Eyes: Pupils PERRL, Red reflex noted, EOM's intact. Eyelids symmetrical without lesions, discharge, or swelling. ENT: Bilateral TM's WNL, External ear normal to inspection, no mastoid TTP, swelling, or erythema, Nasal turbinates WNL, no nasal discharge. Normal dentition, Posterior pharynx WNL, no exudate. Chest: RRR, Normal S1, S2, distal pulses intact. Resp: Lungs clear to auscultation bilaterally, no wheezes, rales, or rhonchi. Abdomen: Soft, non-distended, Normoactive bowel sounds all 4 quads. Musculoskeletal: Normal gait, 5/5 strength to all four extremities. Skin: No suspicious rashes or lesions. Capillary refill less than 2 sec. Neurologic: Cranial nerves II-XII intact. Alert and oriented x 3. Motor: No deficits noted. Sensory: Intact bilaterally all 4 extremities. Reflexes: DTR's intact bilaterally.. Hematologic/Lymphatic: No ecchymosis, no lymphadenopathy. Course Vital Signs Vital signs: Vital Signs Temperature 36.7 C 03/10/22 18:52 Pulse 79 03/10/22 18:52 Respiratory Rate 16 03/10/22 18:52 Blood Pressure 147/60 H 03/10/22 18:52 Pulse Oximetry 97 03/10/22 18:52 Temperature 36.7 C 03/10/22 18:52 Temperature Source Oral 03/10/22 18:52 Pulse 79 03/10/22 18:52 Respiratory Rate 16 03/10/22 18:52 Respiratory Effort 03/10/22 18:52 Blood Pressure 147/60 H 03/10/22 18:52 Blood Pressure Position Sitting 03/10/22 18:52 Pulse Oximetry 97 03/10/22 18:52 Oxygen Delivery Method Room Air 03/10/22 18:52 Oxygen Flow Rate 0 03/10/22 18:52 Pain Level 6 03/10/22 18:52
[2022-03-10 19:39] LABS: Abs Immature Grans 0.02 10^3/uL (0.0-0.06); Absolute Basophil Count 0.01 10^3/uL (0.0-0.2); Absolute Eosinophil Count 0.13 10^3/uL (0.0-0.7); Absolute Lymphocyte Count 1.28 10^3/uL (1.2-3.4); Absolute Monocyte Count 0.42 10^3/uL (0.1-0.8); Absolute Neutrophil Count 3.51 10^3/uL (1.2-6.7); Basophils % 0.2; Eosinophils % 2.4; HCT 37.8 % (36.0-46.0); HGB 12.6 g/dL (11.2-15.7); Immature Grans % 0.4; Lymphocytes % 23.8; MCH 27.9 pg (27.0-33.0); MCHC 33.3 % (32.0-36.0); MCV 84 fL (80-95); MPV 9.7 fL (8.0-11.0); Monocytes % 7.8; Neutrophils % 65.4; Platelet Count 210 10^3/uL (130-400); RBC 4.52 10^6/uL (3.93-5.22); RDW 13.8 % (11.7-14.6); RDW-SD 41.9 fL; WBC 5.37 10^3/uL (4.4-10.8)
[2022-03-10] MEDS: Meclizine 25 MG TAB PO (19:40)
[2022-03-10 19:57] LABS: ALT 20 U/L (14-59); AST 12 U/L (15-37); Alkaline Phosphatase 69 U/L (46-116); Anion Gap 10.1 mmol/L (3-11); BUN 21 mg/dL (7-18); Bilirubin, Total 0.4 mg/dL (0.2-1.0); CO2 23.9 mmol/L (21.0-32.0); CREATININE 1.1 mg/dL (0.55-1.02); Calcium 9.4 mg/dL (8.5-10.1); Chloride 106 mmol/L (98-107); Estimated GFR 54.39 (mL/min/1.73m2); Glucose 194 mg/dL (74-106); Magnesium 1.6 mg/dL (1.8-2.4); Potassium 4.1 mmol/L (3.5-5.1); Sodium 140 mmol/L (136-145); Total Protein 7.3 g/dL (6.4-8.2); Troponin I < 50 ng/L (<or=60)
[2022-03-10] MEDS: Omnipaque 350 MG/ML 100 ML BTL IJ (20:12)
[2022-03-10 20:44] LABS: Bilirubin Negative (Negative); Blood Negative (Negative); Clarity Clear (Clear); Glucose Negative (Negative); Ketones Negative (Negative); Leukocyte Esterase Negative (Negative); Nitrite Negative (Negative); Urobilinogen 0.2 EU/dL (Up TO 0.2)
--- NOTE | 2022-03-10 21:07 | DI.VRAD_ITS ---
PROCEDURE INFORMATION: Exam: CTA Head Without And With Contrast, Arteriography Exam date and time: 03/10/2022 8:13 PM Age: 67 years old Clinical indication: Dizziness and giddiness and headache TECHNIQUE: Imaging protocol: Computed tomographic angiography of the head without and with contrast. Exam focused on the arteries. 3D rendering (Not supervised by radiologist): MIP and/or 3D reconstructed images were created by the technologist. COMPARISON: No relevant prior studies available. FINDINGS: ANTERIOR CIRCULATION: Right internal carotid artery: Intracranial segment is patent with no significant stenosis or occlusion. No aneurysm. Right middle cerebral artery: No occlusion or significant stenosis. No aneurysm. Right anterior cerebral artery: No occlusion or significant stenosis. No aneurysm. Left internal carotid artery: Intracranial segment is patent with no significant stenosis. No aneurysm. Left middle cerebral artery: No occlusion or significant stenosis. No aneurysm. Left anterior cerebral artery: No occlusion or significant stenosis. No aneurysm. POSTERIOR CIRCULATION: Right vertebral artery: No occlusion or significant stenosis. No aneurysm. Left vertebral artery: No occlusion or significant stenosis. No aneurysm. Basilar artery: No occlusion or significant stenosis. No aneurysm. Right posterior cerebral artery: No occlusion or significant stenosis. No aneurysm. origin. Left posterior cerebral artery: No occlusion or significant stenosis. No aneurysm. HEAD: Brain: No intracranial hemorrhage. No midline shift. No significant white matter hypoattenuation. Mild frontal atrophy. Cerebral ventricles: Normal. No ventriculomegaly. Bones/joints: Unremarkable. No acute fracture. Paranasal sinuses: Visualized sinuses are normal. No fluid levels. Mastoid air cells: Visualized mastoids are normal. No mastoid effusion. Soft tissues: Unremarkable. IMPRESSION: No large vessel occlusion. No significant intracranial stenosis. PROCEDURE INFORMATION: Exam: CTA Neck Without And With Contrast Exam date and time: 03/10/2022 8:13 PM Age: 67 years old Clinical indication: Dizziness and giddiness and headache TECHNIQUE: Imaging protocol: Computed tomographic angiography of the neck without and with contrast. 3D rendering (Not supervised by radiologist): MIP and/or 3D reconstructed images were created by the technologist. COMPARISON: No relevant prior studies available. FINDINGS: Right common carotid artery: No stenosis. No dissection or occlusion. Right internal carotid artery: Moderate proximal calcified plaque. Mild stenosis 21%. No dissection or occlusion. Right external carotid artery: No occlusion or stenosis of the origin. Left common carotid artery: No stenosis. No dissection or occlusion. Left internal carotid artery: No stenosis of the extracranial segment. No dissection or occlusion. Left external carotid artery: No occlusion or stenosis of the origin. Right vertebral artery: No stenosis. No dissection or occlusion. Left vertebral artery: No stenosis. No dissection or occlusion. Soft tissues: Normal. No significant soft tissue swelling. Bones/joints: Moderate multilevel degenerative disc disease and facet arthropathy. IMPRESSION: No significant stenosis. No occlusion. REFERENCES: NASCET CRITERIA. The degree of stenosis in the cervical segment of the internal carotid artery is based on NASCET criteria. Normal is no stenosis. Mild is less than 50% stenosis. Moderate is 50-69% stenosis. Severe is 70% to 99% stenosis. Total occlusion is no detectable patent lumen. Dictated and Authenticated by: Tulio Cordova MD. Ordering:LAN Vega MD
[2022-03-10] MEDS: Magnesium Oxide 400 MG TAB PO (21:25)
[2022-03-10 21:32] VITALS: BP 137/56; PULSE 79; RESP 16; TEMP 36.6
== END 2022-03-10 22:12 | disposition home or self-care (01) ==
PROVIDERS: Emergency Provider Registered Nurse Emergency; PCP Nurse Practitioner Family
DX: R42 Dizziness and giddiness (principal); H93.13 Tinnitus, bilateral; R51.9 Headache, unspecified
CPT/HCPCS: 70496; 70498; 80053; 93005; 99285; 81003; 83735; 84484; 85025; 93010; 99284; J3490

== ENCOUNTER 2022-03-16 15:34 | Outpatient (REF) | payer MEDICARE, SELFPAY ==
[2022-03-16 19:17] LABS: Anion Gap 9.8 mmol/L (3-11); BUN 20 mg/dL (7-18); CO2 24.2 mmol/L (21.0-32.0); CREATININE 1.2 mg/dL (0.55-1.02); Calcium 9.3 mg/dL (8.5-10.1); Chloride 108 mmol/L (98-107); Glucose 152 mg/dL (74-106); Potassium 4.8 mmol/L (3.5-5.1); Sodium 142 mmol/L (136-145)
[2022-03-16 19:21] LABS: Hemoglobin A1C 6.4 % (<5.7)
== END 2022-03-16 15:35 | disposition home or self-care (01) ==
LOC: NCHCN 15:34
PROVIDERS: PCP Nurse Practitioner Family; Visit Provider Nurse Practitioner Family
DX: E11.9 Type 2 diabetes mellitus without complications (principal); I10 Essential (primary) hypertension
CPT/HCPCS: 80048; 83036

== ENCOUNTER 2022-05-30 13:51 | Outpatient (REF) | payer MEDICARE, SELFPAY ==
[2022-05-30 15:55] LABS: ALT 22 U/L (14-59); AST 19 U/L (15-37); Albumin 4.1 g/dL (3.4-5.0); Alkaline Phosphatase 73 U/L (46-116); Anion Gap 6.6 mmol/L (3-11); BUN 22 mg/dL (7-18); Bilirubin, Total 0.5 mg/dL (0.2-1.0); CO2 25.4 mmol/L (21.0-32.0); CREATININE 1.2 mg/dL (0.55-1.02); Calcium 9.4 mg/dL (8.5-10.1); Chloride 103 mmol/L (98-107); Creatine Kinase 80 U/L (26-192); Glucose 106 mg/dL (74-106); Potassium 4.6 mmol/L (3.5-5.1); Sodium 135 mmol/L (136-145)
[2022-05-30 16:27] LABS: HDL Cholesterol 89 mg/dL (40-60); LDL CHOLESTEROL 44 mg/dL (<100)
== END 2022-05-30 13:52 | disposition home or self-care (01) ==
LOC: NCHCN 13:51
PROVIDERS: PCP Nurse Practitioner Family; Visit Provider Nurse Practitioner Family
DX: E78.5 Hyperlipidemia, unspecified (principal); I10 Essential (primary) hypertension
CPT/HCPCS: 80053; 82550; 83721; 83718

== ENCOUNTER 2022-10-22 13:20 | Outpatient (REF) | payer MEDICARE, SELFPAY ==
[2022-10-22 18:14] LABS: ALT 30 U/L (14-59); AST 17 U/L (15-37); HDL Cholesterol 86 mg/dL (40-60); LDL CHOLESTEROL 56 mg/dL (<100)
[2022-10-22 18:33] LABS: Creatine Kinase 71 U/L (26-192)
[2022-10-22 19:09] LABS: Hemoglobin A1C 6.2 % (<5.7)
== END 2022-10-22 13:21 | disposition home or self-care (01) ==
LOC: NCHCN 13:20
PROVIDERS: PCP Nurse Practitioner Family; Visit Provider Nurse Practitioner Family
DX: E11.9 Type 2 diabetes mellitus without complications (principal); E78.5 Hyperlipidemia, unspecified; I10 Essential (primary) hypertension
CPT/HCPCS: 82550; 83721; 83036; 83718; 84450; 84460

== ENCOUNTER → 2023-03-08 00:14 | Outpatient (CLI) | payer MEDICARE, SELFPAY ==
--- NOTE | 2023-03-08 12:19 | DI.MAMMO_ITS ---
Exam(s) MAMMO SCREENING EXAM: MAMMO SCREENING CLINICAL HISTORY: SCREENING, Z12.31 TECHNIQUE: Mammograms were interpreted according to the usual protocol including computer analysis w [email or web address] CAD system, tomosynthesis and C-view imaging. COMPARISON: 2013 through 2021 FINDINGS: The breasts are composed of scattered fibroglandular densities, Breast Density category B. No suspicious masses or suspicious microcalcifications are seen. No skin thickening or abnormal axillary lymph nodes are seen. There has been no significant change from prior exams. IMPRESSION: BI-RADS Category 1, Negative mammogram Yearly screening mammography is recommended. Breast Density - Category B, scattered fibroglandular densities. A negative radiographic report should not delay biopsy if a dominant or clinically suspicious mass is present. Up to ten percent of cancers are not identified on mammography. A negative report may reinforce clinical impression. Adenosis and dense breasts may obscure an underlying neoplasm. False positive reports average 6 to 10%. Patient will receive a letter notifying them of these results.
== END ==
PROVIDERS: PCP Nurse Practitioner Family; Visit Provider Nurse Practitioner Family
DX: Z12.31 Encounter for screening mammogram for malignant neoplasm of breast (principal); R92.323 Mammographic fibroglandular density, bilateral breasts
CPT/HCPCS: 77063; 77067

== ENCOUNTER 2023-05-22 14:10 | Outpatient (REF) | payer MEDICARE, SELFPAY ==
[2023-05-22 15:59] LABS: Anion Gap 8.5 mmol/L (3-11); BUN 20 mg/dL (7-18); CO2 26.5 mmol/L (21.0-32.0); CREATININE 1.1 mg/dL (0.55-1.02); Calcium 9.6 mg/dL (8.5-10.1); Chloride 106 mmol/L (98-107); Estimated GFR 54.06 (mL/min/1.73m2); Glucose 159 mg/dL (74-106); Potassium 4.4 mmol/L (3.5-5.1); Sodium 141 mmol/L (136-145)
[2023-05-22 16:06] LABS: Hemoglobin A1C 6.1 % (<5.7)
== END 2023-05-22 14:11 | disposition home or self-care (01) ==
LOC: NCHCN 14:10
PROVIDERS: PCP Nurse Practitioner Family; Visit Provider Nurse Practitioner Family
DX: I10 Essential (primary) hypertension (principal); E11.9 Type 2 diabetes mellitus without complications
CPT/HCPCS: 80048; 83036

== ENCOUNTER → 2023-08-26 12:58 | Outpatient (BNVA) | payer MEDICARE, SELFPAY | PROVIDERS: PCP Nurse Practitioner Family; Referring Provider Nurse Practitioner Family; Visit Provider Surgery | DX: Z12.11 Encounter for screening for malignant neoplasm of colon (principal); D12.6 Benign neoplasm of colon, unspecified ==

== ENCOUNTER 2024-01-31 13:38 | Emergency (ER) | payer MEDICARE, SELFPAY ==
[2024-01-31] VITALS (19 sets, daily range): BP systolic 141–193; BP diastolic 70–85; PULSE 76–109; RESP 13–27; TEMP 36.8; O2SAT 94–98
--- NOTE | 2024-01-31 13:30 | RT.EKG_ITS ---
APPROVED REPORT Exam: Resting ECG Reason for Exam: Chest Pain Patient Location: E HR:86 bpm ECG Measurements Heart Rate 86 AXIS GA 141 P 32 QRSd 133 QRS 3 QT 394 T 6 QTc 472 Conclusion Sinus rhythm...normal P axis, V-rate 60- 99 Right bundle branch block...QRSd>120, terminal axis(90,270) Probable left ventricular hypertrophy...(RaVL+SV3)xQRSd >300 Normal sinus rhythm at a rate of 86 with right bundle branch block. Left axis. No acute ST segment abnormalities. Inferior ST segment elevations appear similar to prior. Prior dated 2 years ago. No acute injury pattern.
--- NOTE | 2024-01-31 13:52 | W.ED.GENAD ---
Discharge Plan Discharge Details Chief Complaint: Chest Pain Primary Care Provider: Angela Thomas ED Provider: Keith Clarke Home Meds and New Rx's Prescriptions: No Action Fish Oil 120-180 mg capsule 1 cap PO DAILY simvastatin 20 mg tablet 20 mg PO QHS amlodipine [Norvasc] 5 mg tablet 5 mg PO DAILY candesartan [Atacand] 32 MG tablet 32 mg PO DAILY doxazosin 2 MG tablet 4 mg PO .QHS Patient Comments: 02/01/17-PT STATES CURRENTLY TAKING 4MG--JHOAN RN Md-N3-aeo-ghyr-ufh-bkur-bor 1 EACH tablet 1 tab PO .QHS glucosamine sulfate 2KCl 500 MG capsule 2,000 mg PO .QHS Patient Comments: 02/01/17-PT STATES CURRENT DOSE IS 2000-JHOAN RN metformin 1,000 MG tablet 1,000 mg PO BID multivitamin 1 EACH capsule 1 ea PO DAILY Ellsworth's wort 300 MG capsule 300 mg PO BID meclizine 25 mg tablet 25 mg PO BID PRN (Reason: dizziness) Qty: 14 0RF Rx Instructions: Take 1 tablet twice daily as needed for dizziness aspirin 81 mg tablet,chewable 81 mg PO DAILY HPI General Date/Time Provider Initiated Documentation: 01/31/24 13:45. HPI Narrative: 68 year-old female presents to ED today by POV/ambulating, sent from Urgent Care with a chief complaint of back pain from heavy lifting working at [employer], that has radiated around to the chest intermittently for a few days out of the last couple weeks, starting today at 0830 (>6hour onset to presentation). Quality described as generalized chest and back pain, no radiation to dizziness, sweating, shortness of breath, near syncope, cough, fevers. Severity is described as 3-4/10. Palliating factors include completely resolved with BenGay each time. Provoking factors include nothing specific- heavy lifting ~30lbs. Events leading up to the incident/Associated Symptoms: Patient denies cardiac history. Patient not anticoagulated. Related Data Home Medications ?Medication ?Instructions ?Recorded ?Confirmed [id number]-[id number]-lwn-Ka-qkdlp-kchf-boron 1 tab PO .QHS 02/11/13 01/31/24 600 mg-200 unit-40 mg-7.5 mg tablet candesartan 32 mg tablet (Atacand) 32 mg PO DAILY 02/11/13 01/31/24 doxazosin 2 mg tablet 4 mg PO .QHS 02/11/13 01/31/24 glucosamine sulfate 2KCl 500 mg 2,000 mg PO .QHS 02/11/13 01/31/24 capsule Ellsworth's wort 300 mg capsule 300 mg PO BID 01/08/18 01/31/24 metformin 1,000 mg tablet 1,000 mg PO BID 01/08/18 01/31/24 multivitamin 1 ea PO DAILY 01/08/18 01/31/24 aspirin 81 mg chewable tablet 81 mg PO DAILY 06/19/18 01/31/24 meclizine 25 mg tablet 25 mg PO BID PRN dizziness #14 tabs 03/10/22 01/31/24 amlodipine 5 mg tablet (Norvasc) 5 mg PO DAILY 07/16/23 01/31/24 simvastatin 20 mg tablet 20 mg PO QHS 07/16/23 01/31/24 docosahexaenoic acid (dha)-epa 120 1 cap PO DAILY 08/26/23 01/31/24 mg-180 mg capsule (Fish Oil) Previous Rx's ?Medication ?Instructions ?Recorded meclizine 25 mg tablet 25 mg PO BID PRN dizziness #14 tabs 03/10/22 Allergies Allergy/AdvReac Type Severity Reaction Status Date / Time clindamycin Allergy Severe Dizziness/L Verified 01/31/24 14:43 ightheade LISA Inhibitors AdvReac Intermediate cough Verified 01/31/24 14:43 codeine AdvReac Intermediate vomiting Verified 01/31/24 14:43 oxycodone AdvReac Intermediate Other (See Verified 01/31/24 14:43 Comment) General Stated Complaint: Chest Pain MARY: 2 Review of Systems All systems reviewed & are unremarkable except as noted in HPI and below Exam Narrative Exam Narrative: GENERAL APPEARANCE: Well-nourished, non-toxic, awake and alert, atraumatic, no acute distress. SKIN: Warm, pink, dry, intact, without rashes/lesions/ulcerations. HEAD: Normocephalic, atraumatic, normal hair distribution for gender/age. EYES: Normal conjunctiva, no exudates on lids/lashes. ENT: Nares patent, no circumoral cyanosis, no facial swelling NECK: Supple, trachea midline, painless cervical ROM. LUNGS/CHEST: Lungs CTA bilaterally, non-labored respirations, normal A/P diameter, symmetrical expansion, no chest wall deformity HEART (CV/PV): Regular rate and rhythm without murmur, no peripheral edema, no JVD. ABDOMEN: Soft, non-distended, no guarding. MSK: Normal ROM, no swelling/deformity to bilateral UEs or LEs, moving all extremities without weakness, no cyanosis, spine midline without tenderness, normal curvature. NEURO: Mental Status AAOx4 - alert to person, place, time, events No facial droop, no forehead involvement. Motor: No focal weakness - strength 5/5 in bilateral UEs and LEs, proximal and distal, symmetric. Sensory: sensation intact to light touch globally. Gait normal: patient ambulated without ataxia into ED room. PSYCH: euthymic, cooperative, pleasant, appropriate speech Course Vital Signs Vital signs: Vital Signs Temperature 36.8 C 01/31/24 13:41 Pulse 88 01/31/24 13:41 Respiratory Rate 18 01/31/24 13:41 Blood Pressure 160/85 H 01/31/24 13:41 Pulse Oximetry 95 01/31/24 13:41 Temperature 36.8 C 01/31/24 13:41 Temperature Source Oral 01/31/24 13:41 Pulse 88 01/31/24 13:41 Respiratory Rate 18 01/31/24 13:41 Blood Pressure 160/85 H 01/31/24 13:41 Pulse Oximetry 95 01/31/24 13:41 Oxygen Delivery Method Room Air 01/31/24 13:41 Oxygen Flow Rate 0 01/31/24 13:41 Medical Decision Making This dictation utilizes [id number] dictation software and may contain unedited grammatical errors. 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 Quality described as generalized chest and back pain, no radiation to dizziness, sweating, shortness of breath, near syncope, cough, fevers. Severity is described as 3-4/10. Palliating factors include completely resolved with BenGay each time. Provoking factors include nothing specific- heavy lifting ~30lbs. Events leading up to the incident/Associated Symptoms: Patient denies cardiac history. Patients' medical history: Hypertension, diabetes mellitus, hypertension. Family and social history: Eats well, states she walks for 1 hour each day, lives independently. Pertinent exam findings / vital signs include benign cardiopulmonary exam, nontoxic vitals, afebrile, benign abdomen. Differential / pathologies of concern include acute coronary syndrome, PE less likely, unlikely pneumonia, costochondritis possible, thoracic back strain. Diagnostic studies of: -CBC, CMP, troponin, lipase, D-dimer, EKG, XR chest, CTA chest PE study. -CBC shows no acute abnormality -CMP shows mildly low magnesium, given p.o. supplement -Lipase negative -Initial troponin 6 with greater than 6-hour onset do not suspect ACS -D-dimer is significantly elevated at 1500 and will reflex to CTA of the chest -EKG shows sinus rhythm with a right bundle branch block, normal intervals, normal axis, no ST changes of ischemia -X-ray shows no pneumonia or other acute abnormality -CTA pending at time of signout Interventions of: -P.o. magnesium supplement. ED Course/Assessment/Plan: 68-year-old female presents with episodic back pain radiating to her chest that has resolved with been getting multiple incidents, negative troponin with greater than 6-hour onset but does have a significantly elevated D-dimer, no pneumonia or other infectious etiology suspected, EKG without ischemic changes, patient signed out to Ana Guzman PA-C with CTA chest pending, likely can discharge home with close follow-up and recommendation to seek cardiology evaluation for echocardiogram and stress test as baseline studies, heart score low risk. Recommend treatment for costochondritis with topical Voltaren. Findings not consistent with acute coronary syndrome, pneumonia, infectious etiology, STEMI, respiratory distress. Disposition of chest pain of uncertain etiology. Patient verbalized understanding of the plan and return to ED criteria and engaged in shared decision making. Medical Records Medical records reviewed: Yes I reviewed the patient's medical records. Imaging Data Radiologic Study: Attestation: I personally reviewed and interpreted this imaging study as follows: Imaging: X-Ray Radiologist's impression: EXAM: XR CHEST 2V PA LATERAL CLINICAL HISTORY: chest pain TECHNIQUE: 2D digital imaging was performed. Two views. COMPARISON: CR CHEST 2 VIEWS PA,LAT from 03/20/2012 FINDINGS: Exam is limited by poor pulmonary inflation. HEART: Enlarged. Mitral annular calcification. Aorta: Mildly tortuous. PULMONARY VASCULATURE: Normal. MEDIASTINUM: Unremarkable. LUNGS: Clear. PLEURAL SPACE: No pleural effusion or pneumothorax. BONE:Unremarkable for age. SOFT TISSUES: Calcified gallstones in the right upper quadrant. IMPRESSION: No acute abnormality. Lab Data Lab results reviewed: Yes I reviewed the patient's lab results. Labs: Laboratory Tests Range/Units 01/31/24 14:10 WBC (4.4-10.8) 10^3/uL 4.91 RBC (3.93-5.22) 10^6/uL 4.67 Hgb (11.2-15.7) g/dL 13.4 Hct (36.0-46.0) % 40.0 MCV (80-95) fL 86 MCH (27.0-33.0) pg 28.7 MCHC (32.0-36.0) % 33.5 RDW (11.7-14.6) % 12.8 Plt Count (130-400) 10^3/uL 183 MPV (8.0-11.0) fL 9.8 Immature Gran % % 0.4 Neutrophils % % 64.0 Lymphocytes % % 23.8 Monocytes % % 7.5 Eosinophils % % 3.7 Basophils % % 0.6 Nucleated RBC % (0.0-0.3) % 0.0 Absolute Neutrophils (1.2-6.7) 10^3/uL 3.14 Absolute Lymphocytes (1.2-3.4) 10^3/uL 1.17 L Absolute Monocytes (0.1-0.8) 10^3/uL 0.37 Absolute Eosinophils (0.0-0.7) 10^3/uL 0.18 Absolute Basophils (0.0-0.2) 10^3/uL 0.03 D-Dimer (<500) ng/mlFEU 1512 H Sodium (136-145) mmol/L 141 Potassium (3.5-5.1) mmol/L 4.1 Chloride (98-107) mmol/L 105 Carbon Dioxide (21.0-32.0) mmol/L 24.8 Anion Gap (3-11) mmol/L 11.2 H BUN (7-18) mg/dL 22 H Creatinine (0.55-1.02) mg/dL 1.0 Est GFR (CKD-EPI 2020) (mL/min/1.73m2) 60.61 Glucose (74-106) mg/dL 101 Calcium (8.5-10.1) mg/dL 9.7 Magnesium (1.8-2.4) mg/dL 1.6 L Total Bilirubin (0.2-1.0) mg/dL 0.73 AST (15-37) U/L 18 ALT (14-59) U/L 34 Alkaline Phosphatase (46-116) U/L 71 Troponin I (<or=51) ng/L 6 Total Protein (6.4-8.2) g/dL 7.4 Albumin (3.4-5.0) g/dL 4.1 Lipase (16-77) U/L 53 Quality:SDOH Health Related Social Needs: No Data to Display PFSH All Active Problems (Updated 08/28/23 @ 22:04 by Reina Cade DO) Tubular adenoma of colon (Acute) Hypertension (Chronic) History of total right hip replacement (Acute 01/16/18) Neoplasm of unspecified behavior of bone, soft tissue, and skin (Acute) Hyperlipidemia (Chronic) Depression (Chronic) Obesity (Chronic) Diabetes mellitus (Chronic) Essential (primary) hypertension (Chronic) Primary osteoarthritis of right knee (Acute 07/10/17) Gastro-esophageal reflux disease without esophagitis (Acute 04/18/15) Surgical History S/P removal of left ovary (~1979) Social History Smoking/Tobacco Use Status: Never Smoking risk assessment performed?: Yes Alcohol Intake: never Drug use: Never Substance use type: does not use Current gender identity: female Sign Out Sign Out Data: Sign Out Comment: CTA chest pending D/c costochondritis if negative, recc. outpatient close f/u for baseline ECHO/stress q 3 months Last updated by Keith Clarke PA at 01/31/24 15:39
--- NOTE | 2024-01-31 14:00 | DI.RAD_ITS ---
Exam(s) XR CHEST 2V PA LATERAL EXAM: XR CHEST 2V PA LATERAL CLINICAL HISTORY: chest pain TECHNIQUE: 2D digital imaging was performed. Two views. COMPARISON: CR CHEST 2 VIEWS PA,LAT from 03/20/2012 FINDINGS: Exam is limited by poor pulmonary inflation. HEART: Enlarged. Mitral annular calcification. Aorta: Mildly tortuous. PULMONARY VASCULATURE: Normal. MEDIASTINUM: Unremarkable. LUNGS: Clear. PLEURAL SPACE: No pleural effusion or pneumothorax. BONE:Unremarkable for age. SOFT TISSUES: Calcified gallstones in the right upper quadrant. IMPRESSION: No acute abnormality. DATA REPOSITORY: RADIATION DOSE DELIVERED:
[2024-01-31 14:21] LABS: Abs Immature Grans 0.02 10^3/uL (0.0-0.06); Absolute Basophil Count 0.03 10^3/uL (0.0-0.2); Absolute Eosinophil Count 0.18 10^3/uL (0.0-0.7); Absolute Lymphocyte Count 1.17 10^3/uL (1.2-3.4); Absolute Monocyte Count 0.37 10^3/uL (0.1-0.8); Absolute Neutrophil Count 3.14 10^3/uL (1.2-6.7); Basophils % 0.6 %; Eosinophils % 3.7 %; HGB 13.4 g/dL (11.2-15.7); Immature Grans % 0.4 %; Lymphocytes % 23.8 %; MCH 28.7 pg (27.0-33.0); MCHC 33.5 % (32.0-36.0); MCV 86 fL (80-95); MPV 9.8 fL (8.0-11.0); Monocytes % 7.5 %; Platelet Count 183 10^3/uL (130-400); RBC 4.67 10^6/uL (3.93-5.22); RDW 12.8 % (11.7-14.6); RDW-SD 39.5 fL; WBC 4.91 10^3/uL (4.4-10.8)
[2024-01-31 14:42] LABS: ALT 34 U/L (14-59); AST 18 U/L (15-37); Albumin 4.1 g/dL (3.4-5.0); Alkaline Phosphatase 71 U/L (46-116); Anion Gap 11.2 mmol/L (3-11); BUN 22 mg/dL (7-18); Bilirubin, Total 0.73 mg/dL (0.2-1.0); CO2 24.8 mmol/L (21.0-32.0); Calcium 9.7 mg/dL (8.5-10.1); Chloride 105 mmol/L (98-107); Estimated GFR 60.61 (mL/min/1.73m2); Glucose 101 mg/dL (74-106); Lipase 53 U/L (16-77); Magnesium 1.6 mg/dL (1.8-2.4); Potassium 4.1 mmol/L (3.5-5.1); Sodium 141 mmol/L (136-145); Total Protein 7.4 g/dL (6.4-8.2); Troponin I 6 ng/L (<or=51)
--- NOTE | 2024-01-31 14:45 | DI.CT_ITS ---
Exam(s) CT CHEST PE CTA EXAM: CT CHEST PE CTA CLINICAL HISTORY: CP, elev d-dimer. TECHNIQUE: Imaging Protocol: CT angiography of the chest was performed using pulmonary embolus chelsi col. Multi planar reconstructions were performed. CONTRAST MATERIAL: Intravenous: Omnipaque 350 Contrast volume: 100 cc COMPARISON: CR XR CHEST 2V PA LATERAL from 01/31/2024 FINDINGS: CHEST: PULMONARY ARTERIES: There are no intraluminal filling defects to suggest acute pulmonary emboli. LUNGS: No evidence of pulmonary infarct nor pleural effusions nor ominous pulmonary nodules. However , there are increased interstitial markings in both lower lobes.. MEDIASTINUM: There is no hilar nor mediastinal adenopathy. Partially visualized thyroid unremarkable. CARDIAC: Mild cardiomegaly. Small anterior inferior pericardial effusion evident.Caliber of the thor acic aorta is within normal limits. No evidence of dissection. There is no significant shift of the interventricular septum. No evidence of IV contrast reflux into the intrahepatic IVC. PARTIALLY VISUALIZED UPPERMOST ABDOMEN: 2 prominent gallstones are noted. No evidence of obvious acu te cholecystitis. No significant adrenal masses. No splenomegaly. OSSEOUS: No significant osseous lesions.. IMPRESSION: 1. No evidence of acute pulmonary emboli. No evidence of pulmonary infarction.No pleural effusions. 2. Cardiomegaly. Small anterior pericardial effusion. 3. Increased dependent markings in both lower lobes. Called by myself to the ER provider 01/31/2024 at 3:55 p.m. RADIATION DOSE DELIVERED: 115.71mGy.cm Total DLP DATA REPOSITORY: All CT scans at this facility are submitted to the National Radiology Data Registry (NRDR) Dose Index Registry (DIR) with the [employer] (ACR). RADIATION OPTIMIZATION: All CT scans at this facility use at least one of these dose optimization te chniques: automated exposure control; mA and/or kV adjustment per patient size (includes targeted exa ms where dose is matched to clinical indication); or iterative reconstruction.
[2024-01-31 14:59] LABS: D-Dimer 1512 ng/mlFEU (<500)
[2024-01-31] MEDS: Omnipaque 350 MG/ML 100 ML BTL IJ (15:24)
[2024-01-31] MEDS: Normal Saline - Diluent 50 ML VIAL IJ (15:25)
[2024-01-31] MEDS: Magnesium Oxide 400 MG TAB PO (15:34)
[2024-01-31 16:44] LABS: Troponin I 7 ng/L (<or=51)
== END 2024-01-31 17:19 | disposition home or self-care (01) ==
PROVIDERS: Physician Assistant; Emergency Provider Physician Assistant; PCP Nurse Practitioner Family
DX: R07.9 Chest pain, unspecified (principal); I51.7 Cardiomegaly; I45.19 Other right bundle-branch block
CPT/HCPCS: 71275; 80053; 83690; 93005; 99285; 71046; 83735; 84484; 85025; 85379; 93010; 99284; J3490

== ENCOUNTER 2024-03-16 00:53 | Outpatient (CLI) | payer MEDICARE, SELFPAY ==
--- NOTE | 2024-03-16 | ETT_ITS ---
APPROVED REPORT Exam: Exercise Treadmill Patient Location: Out-Patient Room/Bed: Stress Nurse: Maylin Schumacher RN Ordering Provider:RENE OLMEDO, Contact Number: [phone] BMI: 35.50 Baseline Rhythm: RBBB Comment: T wave inversions in V2, aVL and V3 Indications: chest pain Medical History Medical History: RBBB, HTN, diabetes, obesity, HLD, GERD Cardiac Medications: simvastatin, amlodipine, candesartan, doxazosin, metformin, aspirin Allergies: clindamycin, LISA inhibitiors, codeine, oxycodone Cardiac Risk Factors: diabetes, HTN, HLD, obesity Previous Cardiac Procedures: none Pretest Chest Pain Characteristics: No chest pain Exercise History: Indeterminate Physical Disabilities: none Lung Sounds: Clear to auscultation Heart Sounds: Regular Stress Test Details Test: Exercise stress testing was performed using a Khris protocol. Rest Stress HR Resting HR Supine: 77 bpm Max Heart Rate (APMHR): 149 bpm Resting HR Standin bpm Target HR (85% APMHR): 127 bpm Max HR Achieved: 128 bpm % of APMHR: 86 Recovery HR: 85 bpm HR response to stress: Accelerated HR response to stress BP Resting BP Supine: 142/82 mmHg Resting BP Standin/72 mmHg Max BP: 172/78 mmHg Recovery BP: 160/82 mmHg BP response to stress: Normal blood pressure response to stress. ECG Resting ECG: Sinus Rhythm, RBBB, T wave inversions in V2, aVL and V3 Ectopy: none Stress ECG: Sinus Tachycardia, RBBB, T wave inversions in V2, aVL and V3 ST Change: No significant ST segment changes noted Arrhythmia: None Recovery ECG: Sinus Rhythm, RBBB, T wave inversions in V2, aVL and V3 Recovery ST Change: No significant ST segment changes noted Recovery Arrhythmia: None Clinical Reason for Termination: Target HR Achieved Stress Symptoms: General Fatigue Exercise duration: 02 min02 sec Highest Stage Reached: Stage 1: 1.7 mph at 10% grade. Exercise capacity: 4.64 METs Angina Score: None Quispe Treadmill Score: 1.3 Rate Pressure Product: 28217 Stress ECG Conclusion 1. Resting electrocardiogram showed right bundle branch block 2. Patient exercised on the Khris protocol and completed workload of 4.64 METS 3. Rapid increase in heart rate with exercise suggest deconditioning. Patient achieved 87% predicted heart rate for age 4. The electrocardiographic portion of the test showed no evidence of myocardial ischemia 5. There were no significant dysrhythmias Quispe Treadmill Score is 1.3 which is Moderate risk. Stress Test Summary STAGE Time (mins) Speed (mph) Grade (%) HR BP SpO2 SYMPTOMS METS Supine 77 142/82 92 Standing 88 144/72 1 3 1.7 10 128 4.5 1 min recovery 98 162/64 96 3 min recovery 84 172/78 6 min recovery 85 160/82
== END 2024-03-16 01:13 ==
LOC: DI 00:54
PROVIDERS: PCP Nurse Practitioner Family; Visit Provider Nurse Practitioner Family
DX: R07.9 Chest pain, unspecified (principal)
CPT/HCPCS: 93016; 93018; 93017

== ENCOUNTER 2024-03-18 01:43 | Outpatient (CLI) | payer MEDICARE, SELFPAY ==
--- NOTE | 2024-03-18 | DI.US_ITS ---
APPROVED REPORT EXAM: Comprehensive 2D, Doppler, and color-flow Echocardiogram Patient Location: Out-Patient Linotyper: Whit Murrell RDCS (AE) Indications: Chest pain Other Information Study Quality: Fair. Technically limited study due to body habitus. Conclusion Top normal left ventricular chamber size. Normal left ventricular wall thickness. Ejection fraction is 55%. Wall motion is normal Normal right ventricular size and function Both atria are normal in size Within the limits of the study no significant structural valvular disease is identified Ascending aorta measures 3.45 cm Wall motion Left Ventricle Left ventricle is borderline dilated. The left ventricular systolic function is normal. The left shahida tricular ejection fraction is within the normal range. There is normal left ventricular wall thicknes s. There is normal LV segmental wall motion. There is no ventricular septal defect visualized. LVEF i s 55%. Right Ventricle Right ventricle is grossly normal in size. Right ventricular systolic function is grossly normal. Atria The left atrium size is normal. The right atrium size is normal. The interatrial septum is intact wit h no evidence for an atrial septal defect. Aortic Valve The aortic valve is normal in structure. Aortic valve is trileaflet. There is no aortic valvular sten osis. No aortic regurgitation is present. Mitral Valve Mild mitral annular calcification. No evidence of mitral valve stenosis. Trace mitral regurgitation. Tricuspid Valve The tricuspid valve is normal in structure. There is no tricuspid valve stenosis. Trace tricuspid reg urgitation. Unable to assess PA pressure. Pulmonic Valve The pulmonary valve is normal in structure. There is no pulmonic valvular stenosis. Trace pulmonic re gurgitation. Great Vessels The aortic root is normal in size. The ascending aorta is mildly dilated. Aortic arch is normal in ca liber. IVC is normal in size and collapses >50% with inspiration. Pericardium There is no pericardial effusion. 2D Dimensions IVSD d PLAX 0.99 cm F: 0.6-1.0 Ao Root d 3.23 cm F: 2.7 - 3.3 LVPW d PLAX 0.98 cm F: 0.6 - 1.0 Ao Asc Diam d 3.45 cm F: 2.3 - 3.1 LVID d PLAX 5.63 cm F: 3.8 - 5.2 LVDs 4.19 cm F: 2.2 - 3.5 LV EF Teichholz 49.7 % FS 25.56 % LV EDV (Teich) 155.8 mL LV ESV (Teich) 78.3 mL M-Mode TAPSE 2.11 cm (M/F) >1.7 Auto EF LV EDV A4C 111.8 mL LV EDV A2C 124.7 mL LV EDV BP 117.4 mL LV ESV A4C 49.7 mL LV ESV A2C 56.4 mL LV ESV BP 53.4 mL LVEF(%) A4C 55.6 % LVEF(%) A2C 54.8 % LVEF(%) BP 54.5 % LV SV A4C 62.2 ml LV SV A2C 68.3 ml LV SV BP 64.0 ml LV CO A4C 5.2 L/min LV CO A2C 4.8 L/min LV CO BP 5.0 L/min HR A4C 84.11 BPM HR A2C 70.45 BPM LV EDV Index (BP) LA Volume LA Length A4C 5.3 cm LA Length A2C 5.8 cm LA Area A4C s 17.32 cm2 LA Area A2C s 20.68 cm2 LA Vol A4C A-L 48.50 mL LA Vol A2C A-L 62.52 mL LA Vol Biplane A-L 57.9 mL LA Vol/BSA A4C A-L LA Vol/BSA A2C A-L LA Vol/BSA BP A-L 27.8 mL/m2 LA Vol A4C MOD 44.8 mL LA Vol A2C MOD 57.6 mL LA Vol BP MOD 53.4 mL RA Volume RA Area A4C 14.1 cm2 RA ESV A4C (A-L) 33.8mL RA Vol/BSA A4C A-L RA Length A4C 5.0 cm RA ESV A4C (MOD) 33.5mL LV Diastology MV E' medial 0.068 (>0.07 m/s) MV E Vmax 0.88 (0.4-1.3 m/s) MV E/E' MED 12.86 (<14) MV A Vmax 1.05 (0.4-1.3 m/s) MV E' lateral 0.082 (>0.1 m/s) E/A Ratio 0.8 MV E/E' LAT 10.63 (<14) MV E' Average 0.075 m/s MV E/E'(average) 11.64 Aortic Valve AoV Vmax 1.65 m/s LVOT Vmax 1.29 m/s AoV Peak Grad 10.9 mmHg LVOT Peak Grad 6.7 mmHg AoV Area (Vmax) 2.21 cm2 LVOT VTI 0.266 m AoV VTI 0.334 m LVOT Mean Grad 3.9 mmHg AoV Mean Vinny. 1.15 m/s LVOT SV 75.44 mL AoV Mean Grad 6.1 mmHg LVOT Diam s 1.85 cm AoV Area (VTI) 2.26 cm2 AV Regurg Peak Gr. 10.94 mmHg Velocity Ratio 0.78 Mitral Valve MV DT 244 (160-240 msec) MV Vmax TIPS 1.12 m/s MV Mean Grad 1.9 (<2mmHg) MV VTI 0.260 m Pulmonary Valve PV Vmax 0.98 (0.5-1.5 m/s) RVOT Vmax 0.91 m/s PV Peak Grad 3.8 mmHg RVOT Peak Gr. 3.3 mmHg PV Mean Vinny 0.69 m/s RVOT VTI 0.183 m PV Mean Grad 2.1 mmHg RVOT Mean Gr. 1.9 mmHg Tricuspid Valve RA Pressure 3.00 mmHg TV S' 0.09 m/s
== END 2024-03-18 02:03 ==
LOC: DI 01:43
PROVIDERS: PCP Nurse Practitioner Family; Visit Provider Nurse Practitioner Family
DX: R07.9 Chest pain, unspecified (principal)
CPT/HCPCS: 93306

== ENCOUNTER 2024-04-10 16:55 | Outpatient (REF) | payer MEDICARE, SELFPAY ==
[2024-04-10 19:34] LABS: ALT 38 U/L (14-59); AST 27 U/L (15-37); Albumin 4.3 g/dL (3.4-5.0); Alkaline Phosphatase 72 U/L (46-116); Anion Gap 13.5 mmol/L (3-11); BUN 20 mg/dL (7-18); Bilirubin, Total 0.53 mg/dL (0.2-1.0); CO2 22.5 mmol/L (21.0-32.0); Calcium 9.7 mg/dL (8.5-10.1); Chloride 104 mmol/L (98-107); Estimated GFR 60.23 (mL/min/1.73m2); Glucose 98 mg/dL (74-106); Magnesium 1.6 mg/dL (1.8-2.4); Potassium 4.7 mmol/L (3.5-5.1); Sodium 140 mmol/L (136-145); Total Protein 7.4 g/dL (6.4-8.2); Vitamin B12 559 pg/mL (193-986); Vitamin D 25 Total 39.9 ng/mL (30-100)
== END 2024-04-10 16:56 | disposition home or self-care (01) ==
LOC: NCHCN 16:55
PROVIDERS: PCP Nurse Practitioner Family; Visit Provider Nurse Practitioner Family
DX: Z00.00 Encounter for general adult medical examination without abnormal findings (principal); E78.5 Hyperlipidemia, unspecified
CPT/HCPCS: 80053; 82306; 82607; 83735

== ENCOUNTER 2024-05-22 00:26 | Outpatient (CLI) | payer MEDICARE, SELFPAY ==
--- NOTE | 2024-05-22 | DI.MAMMO_ITS ---
Exam(s) MAMMO SCREENING EXAM: MAMMO SCREENING CLINICAL HISTORY: Z12.31 Screening TECHNIQUE: Bilateral full field digital CC and MLO mammographic images were obtained with 3D tomosyn thesis and utilizing computer aided detection (CAD). COMPARISON: Available for comparison. FINDINGS: Masses/Architectural Distortion: No suspicious nodules. No areas of architectural distortion. Microcalcifications: No suspicious pleomorphic-type are seen. Skin Thickening/Nipple Retraction: None. IMPRESSION: 1. No significant interval change with no specific features of malignancy noted. 2. Unless there is more urgent need, screening mammography is recommended, as per [employer] guidelines. BI-RADS Category 1 - Negative Breast Density - Category B - Scattered areas of fibroglandular density Breast density category C or D implies that the patient has dense breast tissue. Dense breast tissue is very common and is not abnormal but dense breast tissue can make it harder to find cancer on a ma mmogram. Also, dense breast tissue may increase their breast cancer risk. This information about the result of the mammogram report was provided to the patient to raise their awareness. Use this report when you speak with the patient about their risks for breast cancer, which includes their family hist ory. At that time, you may recommend for more screening tests (Ultrasound or MRI) as they might be us eful based on their risk. A negative radiographic report should not delay biopsy if a dominant or clinically suspicious mass is present. Up to ten percent of cancers are not identified on mammography. A negative report may reinforce clinical impression. Adenosis and dense breasts may obscure an underlying neoplasm. False positive reports average 6 to 10%. Patient will receive a letter notifying them of these results.
== END 2024-05-22 00:46 ==
LOC: DI 00:26
PROVIDERS: PCP Nurse Practitioner Family; Visit Provider Nurse Practitioner Family
DX: Z12.31 Encounter for screening mammogram for malignant neoplasm of breast (principal); R92.323 Mammographic fibroglandular density, bilateral breasts
CPT/HCPCS: 77063; 77067

== ENCOUNTER 2024-09-02 02:12 | Outpatient (CLI) | payer MEDICARE, SELFPAY ==
--- NOTE | 2024-09-02 | DI.RAD_ITS ---
Exam(s) XR KNEE RT 3V AP,LAT,CONSTANZA EXAM: XR KNEE RT 3V AP,LAT,CONSTANZA CLINICAL HISTORY: RT KNEE PAIN,M25.561. TECHNIQUE: 2D digital imaging was performed of the right knee. Three views obtained. AP, lateral an d PA tunnel views were obtained. COMPARISON: CR RIGHT KNEE 3 VIEWS from 02/01/2017 FINDINGS: BONES: No acute fracture is present. No bony destructive lesion is seen. There is an enthesophyte at the inferior patella. JOINTS: There is moderate narrowing narrowing and small osteophytes in the medial femoral tibial join t. No joint effusion is seen. SOFT TISSUE: Normal. IMPRESSION: Moderate degenerative changes in the right knee. DATA REPOSITORY: RADIATION DOSE DELIVERED:
--- NOTE | 2024-09-02 | DI.RAD_ITS ---
Exam(s) XR KNEE LT 3V AP,LAT,CONSTANZA EXAM: XR KNEE LT 3V AP,LAT,CONSTANZA CLINICAL HISTORY: LT KNEE PAIN,M25.562. TECHNIQUE: 2D digital imaging was performed of the left knee. Three images were obtained. AP, late ral and PA tunnel views were obtained. COMPARISON: No priors for comparison. FINDINGS: BONES: No acute fracture is present. No bony destructive lesion is seen. JOINTS: There is mild narrowing and spurring in the medial femoral tibial joint. No joint effusion i s seen. No loose body. SOFT TISSUE: Atherosclerotic calcification is present. IMPRESSION: Mild degenerative changes in the left knee. DATA REPOSITORY: RADIATION DOSE DELIVERED:
== END 2024-09-02 02:32 ==
LOC: DI 02:12
PROVIDERS: PCP Nurse Practitioner Family; Visit Provider Nurse Practitioner Family
DX: M79.672 Pain in left foot (principal); M79.671 Pain in right foot; M25.561 Pain in right knee
CPT/HCPCS: 73562

== ENCOUNTER 2024-09-02 02:12 | Outpatient (CLI) | payer MEDICARE, SELFPAY ==
--- NOTE | 2024-09-02 07:45 | DI.RAD_ITS ---
Exam(s) XR FOOT LT COMPLETE EXAM: XR FOOT LT COMPLETE CLINICAL HISTORY: Left foot pain,M79.672. TECHNIQUE: 2D digital imaging was performed of the left foot. Three images were obtained. AP, obli que and lateral views were obtained. COMPARISON: CR XR FOOT LT COMPLETE from 06/15/2019 FINDINGS: BONES: No acute fracture is present. No bony destructive lesion is seen. Is a small enthesophyte at t he posterior calcaneus. There is a small plantar calcaneal spur. JOINTS: No dislocation present. There is moderate narrowing and mild spurring of the 1st MTP joint. There are degenerative changes seen in the midfoot particularly at the talonavicular joint and the ar ticulation of the navicular and the cuneiform is. SOFT TISSUE: Normal. IMPRESSION: Degenerative changes seen in the left foot. DATA REPOSITORY: RADIATION DOSE DELIVERED:
--- NOTE | 2024-09-02 07:45 | DI.RAD_ITS ---
Exam(s) XR FOOT RT COMPLETE EXAM: XR FOOT RT COMPLETE CLINICAL HISTORY: Right foot pain,m79.671. TECHNIQUE: 2D digital imaging was performed of the right foot. Three images were obtained. AP, obl ique and lateral views were obtained. COMPARISON: CR RIGHT FOOT COMPLETE from 02/28/2015 FINDINGS: BONES: No acute fracture is present. No bony destructive lesion is seen. JOINTS: No dislocation present. There are degenerative changes seen in the foot particularly at the t arsometatarsal joints. SOFT TISSUE: Normal. IMPRESSION: Mild degenerative changes of the right foot. DATA REPOSITORY: RADIATION DOSE DELIVERED:
== END 2024-09-02 02:32 ==
LOC: DI 02:12
PROVIDERS: PCP Nurse Practitioner Family; Visit Provider Podiatrist
DX: M79.671 Pain in right foot (principal); M79.672 Pain in left foot; G62.9 Polyneuropathy, unspecified; E11.9 Type 2 diabetes mellitus without complications; M25.572 Pain in left ankle and joints of left foot; Q66.71 Congenital pes cavus, right foot; Q66.72 Congenital pes cavus, left foot
CPT/HCPCS: 99214; 73630

== ENCOUNTER 2024-10-09 14:08 | Outpatient (REF) | payer MEDICARE, SELFPAY ==
[2024-10-09 15:58] LABS: Hemoglobin A1C 6.3 % (<5.7)
[2024-10-09 16:12] LABS: Magnesium 1.7 mg/dL (1.8-2.4)
== END 2024-10-09 14:09 | disposition home or self-care (01) ==
LOC: NCHCN 14:08
PROVIDERS: PCP Nurse Practitioner Family; Visit Provider Nurse Practitioner Family
DX: Z00.00 Encounter for general adult medical examination without abnormal findings (principal); E11.9 Type 2 diabetes mellitus without complications
CPT/HCPCS: 83036; 83735

== ENCOUNTER 2025-04-12 21:17 | Outpatient (REF) | payer MEDICARE, SELFPAY ==
[2025-04-12 18:40] LABS: HCT 41.8 % (36.0-46.0); HGB 13.8 g/dL (11.2-15.7); MCH 28.4 pg (27.0-33.0); MCHC 33.0 % (32.0-36.0); MCV 86 fL (80-95); MPV 10.3 fL (8.0-11.0); Platelet Count 205 10^3/uL (130-400); RBC 4.86 10^6/uL (3.93-5.22); RDW 13.0 % (11.7-14.6); RDW-SD 40.5 fL; WBC 4.76 10^3/uL (4.4-10.8)
[2025-04-12 18:51] LABS: Magnesium 1.7 mg/dL (1.6-2.6)
[2025-04-12 18:53] LABS: ALT 26 U/L (10-49); AST 23 U/L (<34); Albumin 4.6 g/dL (3.2-5.0); Alkaline Phosphatase 68 U/L (46-116); Anion Gap 8.4 mmol/L (3-11); BUN 17 mg/dL (9-23); Bilirubin, Total 0.50 mg/dL (0.2-1.2); CO2 24.6 mmol/L (20.0-31.0); Calcium 9.5 mg/dL (8.3-10.6); Chloride 107 mmol/L (98-107); Cholesterol 167 mg/dL (<200); Glucose 99 mg/dL (74-106); HDL Cholesterol 91 mg/dL (>40); Potassium 4.7 mmol/L (3.5-5.1); Sodium 140 mmol/L (136-145); Total Protein 6.9 g/dL (5.7-8.2)
[2025-04-12 18:55] LABS: Ferritin 18 ng/mL (7-271); Hemoglobin A1C 6.1 % (<5.7); TSH (W/Ref FT4) 1.52 uIU/mL (0.55-4.78)
[2025-04-12 19:34] LABS: Microalb ug/mg Crea 11.1 ug/mg Cr
== END 2025-04-12 21:18 | disposition home or self-care (01) ==
LOC: NCHCN 21:17
PROVIDERS: PCP Nurse Practitioner Family; Visit Provider Nurse Practitioner Family
DX: E11.9 Type 2 diabetes mellitus without complications (principal); Z00.00 Encounter for general adult medical examination without abnormal findings; R53.83 Other fatigue
CPT/HCPCS: 80053; 80061; 85027; 82043; 82570; 82728; 83036; 83735; 84443